=== PATIENT | male | born 1965 | race Caucasian/White ===

== ENCOUNTER 2021-03-11 21:34 | Emergency (ER) | payer SELFPAY ==
[~2021-03-11] VITALS: Ht 170.2 cm; Wt 75.0 kg
[2021-03-11] MEDS ORDERED: KETOROLAC 30 MG/ML VIAL. IVP ONE (23:15)
[2021-03-11 23:19] LABS: BASO # 0.1 x10^3/uL (0.0-0.2); BASO % 1 % (0-3); EOS # 0.1 x10^3/uL (0.0-0.7); EOS % 1 % (0-3); HEMATOCRIT 45.9 % (39.0-53.0); HEMOGLOBIN 15.6 g/dL (13.0-17.5); LYMPH # 1.6 x10^3/uL (1.0-4.8); LYMPH % 16 % (24-48); MEAN CORPUSCULAR HEMOGLOBIN 32 pg (25-35); MEAN CORPUSCULAR HGB CONC 34 g/dL (31-37); MEAN CORPUSCULAR VOLUME 95 fL (79-100); MONO # 0.7 x10^3/uL (0.0-1.1); MONO % 7 % (0-9); NEUT # 7.5 x10^3/uL (1.8-7.7); NEUT % 76 % (31-73); PLATELET COUNT 263 x10^3/uL (140-400); RED BLOOD COUNT 4.82 x10^6/uL (4.30-5.70); RED CELL DISTRIBUTION WIDTH 12.8 % (11.5-14.5); WHITE BLOOD COUNT 9.9 x10^3/uL (4.0-11.0)
[2021-03-11 23:26] LABS: BILIRUBIN,URINE NEGATIVE (NEG); CLARITY,URINE CLEAR; COLOR,URINE YELLOW; NITRITE,URINE NEGATIVE (NEG); PROTEIN,URINE NEGATIVE (NEG-TRACE); UROBILINOGEN,URINE 0.2 mg/dL (0.2 mg/dL)
[2021-03-11] MEDS ORDERED: MULTIVIT INFUSN,ADULT 4,VIT K 10 ML, THIAMINE INJ 100 MG, FOLIC ACID INJ 1 MG in IV NOR... IV ONE (23:30)
[2021-03-11 23:41] LABS: CALCIUM 8.3 mg/dL (8.5-10.1); CREATININE 0.8 mg/dL (0.7-1.3); POTASSIUM 3.4 mmol/L (3.5-5.1)
[2021-03-11 23:42] LABS: BACTERIA,URINE 0 /HPF (0-FEW); RBC,URINE 0 /HPF (0-2); WBC,URINE 0 /HPF (0-4)
[2021-03-11 23:47] LABS: ALBUMIN 3.4 g/dL (3.4-5.0); ALBUMIN/GLOBULIN RATIO 0.9 (1.0-1.7); TOTAL BILIRUBIN 0.7 mg/dL (0.2-1.0); TOTAL PROTEIN 7.3 g/dL (6.4-8.2)
--- NOTE | 2021-03-11 23:52 | RAD ---
Exam: Chest one view INDICATION: Chest pain TECHNIQUE: Frontal view of the chest Comparisons: None FINDINGS: The cardiomediastinal silhouette and pulmonary vessels are within normal limits. Subtle patchy airspace disease at the right lung base. No pleural effusion IMPRESSION: Right basilar airspace disease, may relate to atelectasis or developing infectious process. Electronically signed by: Tami Yu MD (03/11/2021 11:49 PM) [facility]
[2021-03-12] MEDS ORDERED: IOHEXOL 300 MG/ML 100ML VIAL. IV ONE (00:30)
[2021-03-12] MEDS ORDERED: CONTRAST GIVEN. MC PRN (00:45)
[2021-03-12 01:31] VITALS: BP 138/85
--- NOTE | 2021-03-12 01:35 | PHYS DOC ---
Past Medical History Past Surgical History: Other Additional Past Surgical Histo: bilat wrists Smoking Status: Current Every Day Smoker Alcohol Use: Heavy General Adult EDM: Chief Complaint: CHEST PAIN HPI: HPI: Patient is a 55-year-old male presents to the emergency department complaining of right upper quadrant pain for the past 2 days. Reports he woke up with this pain. Patient denies taking any pain medications other than drinking beer. Patient reports he does not drink any alcohol other than beer. Patient reports he has drank every day at least 12-15 beers for the past 16 years. Patient also reports smoking cigarettes and occasionally smoking marijuana, denies other illicit drug use. Patient denies shortness of breath, recent fever or chills, denies nausea, vomiting, diarrhea. Patient is unsure if his pain is on his lower right side chest or upper right side abdomen. Patient denies other physic al complaints or physical concerns. Patient does report a history of hepatitis C Review of Systems: Review of Systems: 14 body systems of review of systems have been reviewed. See HPI for pertinent positives and negative responses, otherwise all other systems are negative, nonpertinent or noncontributory. Constitutional: Negative except as outlined in HPI above. Skin: Negative except as outlined in HPI above. Eyes: Negative except as outlined in HPI above. HENT: Negative except as outlined in HPI above. Respiratory: Negative except as outlined in HPI above. Cardiovascular: Negative except as outlined in HPI above. GI: Negative except as outlined in HPI above. : Negative except as outlined in HPI above. Musculoskeletal: Negative except as outlined in HPI above. Integument: Negative except as outlined in HPI above. Neurologic: Negative except as outlined in HPI above. Endocrine: Negative except as outlined in HPI above. Lymphatic: Negative except as outlined in HPI above. Psychiatric: Negative except as outlined in HPI above. Heart Score: C/O Chest Pain: No Risk Factors: Risk Factors: DM, Current or recent (<one month) smoker, HTN, HLP, family history of CAD, obesity. Risk Scores: Score 0 - 3: 2.5% MACE over next 6 weeks - Discharge Home Score 4 - 6: 20.3% MACE over next 6 weeks - Admit for Clinical Observation Score 7 - 10: 72.7% MACE over next 6 weeks - Early Invasive Strategies Current Medications: Current Medications Medications (Trade) Dose Ordered Sig/Stephanie Start Time Stop Time Status Last Admin Dose Admin Info (CONTRAST GIVEN -- Rx MONITORING) 1 each PRN DAILY PRN 03/12/21 00:45 03/14/21 00:44 Iohexol (Omnipaque 300 Mg/ml) 75 ml 1X ONCE 03/12/21 00:30 03/12/21 00:31 DC Ketorolac Tromethamine (Toradol 30mg Vial) 30 mg 1X ONCE 03/11/21 23:15 03/11/21 23:16 DC 03/11/21 23:25 30 MG Multivitamins 10 ml/Thiamine HCl 100 mg/Folic Acid 1 mg/Sodium Chloride 1,011.2 ml @ 1,000.088 mls/hr 1X ONCE 03/11/21 23:30 03/12/21 00:30 DC 03/11/21 23:24 1,000.088 MLS/HR Allergies: Allergies: Allergies Coded Allergies Type Severity Reaction Last Updated Verified No Known Drug Allergies 03/11/21 No Physical Exam: PE: Constitutional: Well developed, well nourished, no acute distress, non-toxic appearance. 55-year-old in no apparent distress. HENT: Normocephalic, atraumatic. Eyes: Conjunctiva normal, no discharge. Neck: Normal range of motion, no stridor. Cardiovascular: No cyanosis appreciated, distal cap refill less than 2 seconds. Lungs & Thorax: Patient is in no respiratory distress, no audible adventitious lung sounds appreciated. Pain to palpation right lower ribs anterior thorax, no crepitus appreciated, no bruising or swelling or ecchymotic areas of the anterior thorax appreciated. Abdomen: Nontender, no abnormalities noted. No Parmar sign, no pain to palpation all 4 quadrants, normal bowel sounds all 4 quadrants. Skin: Warm, dry, no erythema, no rash. Back: No tenderness, no deformities. Extremities: No tenderness, no cyanosis, no clubbing, ROM intact, no edema. Neurologic: Alert and oriented X 3, normal motor function, normal sensory function, no focal deficits noted. Psychologic: Affect normal, judgement normal, mood normal. Current Patient Data: Labs: Laboratory Tests Test 03/11/21 21:50 03/11/21 23:20 White Blood Count 9.9 x10^3/uL (4.0-11.0) Red Blood Count 4.82 x10^6/uL (4.30-5.70) Hemoglobin 15.6 g/dL (13.0-17.5) Hematocrit 45.9 % (39.0-53.0) Mean Corpuscular Volume 95 fL (79-100) Mean Corpuscular Hemoglobin 32 pg (25-35) Mean Corpuscular Hemoglobin Concent 34 g/dL (31-37) Red Cell Distribution Width 12.8 % (11.5-14.5) Platelet Count 263 x10^3/uL (140-400) Neutrophils (%) (Auto) 76 % (31-73) H Lymphocytes (%) (Auto) 16 % (24-48) L Monocytes (%) (Auto) 7 % (0-9) Eosinophils (%) (Auto) 1 % (0-3) Basophils (%) (Auto) 1 % (0-3) Neutrophils # (Auto) 7.5 x10^3/uL (1.8-7.7) Lymphocytes # (Auto) 1.6 x10^3/uL (1.0-4.8) Monocytes # (Auto) 0.7 x10^3/uL (0.0-1.1) Eosinophils # (Auto) 0.1 x10^3/uL (0.0-0.7) Basophils # (Auto) 0.1 x10^3/uL (0.0-0.2) Sodium Level 127 mmol/L (136-145) L Potassium Level 3.4 mmol/L (3.5-5.1) L Chloride Level 94 mmol/L (98-107) L Carbon Dioxide Level 27 mmol/L (21-32) Anion Gap 6 (6-14) Blood Urea Nitrogen 5 mg/dL (8-26) L Creatinine 0.8 mg/dL (0.7-1.3) Estimated GFR (Cockcroft-Gault) 100.0 BUN/Creatinine Ratio 6 (6-20) Glucose Level 121 mg/dL (70-99) H Calcium Level 8.3 mg/dL (8.5-10.1) L Total Bilirubin 0.7 mg/dL (0.2-1.0) Aspartate Amino Transferase (AST) 42 U/L (15-37) H Alanine Aminotransferase (ALT) 68 U/L (16-63) H Alkaline Phosphatase 93 U/L (46-116) Creatine Kinase 141 U/L (39-308) Creatine Kinase MB (Mass) 3.0 ng/mL (0.0-3.6) Creatine Kinase MB Relative Index 2.1 % (0-4) Troponin I High Sensitivity 6 ng/L (4-75) DT-Uub-G-Type Natriuretic Peptide 77 pg/mL (0-124) Total Protein 7.3 g/dL (6.4-8.2) Albumin 3.4 g/dL (3.4-5.0) Albumin/Globulin Ratio 0.9 (1.0-1.7) L Lipase 108 U/L (73-393) Ethyl Alcohol Level 189 mg/dL (0-10) H Urine Collection Type Void Urine Color Yellow Urine Clarity Clear Urine pH 6.0 (<5.0-8.0) Urine Specific [place] <=1.005 (1.000-1.030) Urine Protein Negative mg/dL (NEG-TRACE) Urine Glucose (UA) Negative mg/dL (NEG) Urine Ketones (Stick) Negative mg/dL (NEG) Urine Blood Negative (NEG) Urine Nitrite Negative (NEG) Urine Bilirubin Negative (NEG) Urine Urobilinogen Dipstick 0.2 mg/dL (0.2 mg/dL) Urine Leukocyte Esterase Negative (NEG) Urine RBC 0 /HPF (0-2) Urine WBC 0 /HPF (0-4) Urine Squamous Epithelial Cells Occ /LPF Urine Bacteria 0 /HPF (0-FEW) Laboratory Tests 03/11/21 21:50 Laboratory Tests 03/11/21 21:50 Vital Signs: Vital Signs Date Time Temp Pulse Resp B/P (MAP) Pulse Ox O2 Delivery O2 Flow Rate FiO2 03/11/21 22:43 102 30 129/74 (92) 95 Room Air 03/11/21 21:48 99.4 99.4 EKG: EKG: EKG performed at 2143 by ED nursing staff shows sinus tachycardia without other ectopy, heart rate 107 bpm, DE interval 0.132, QTc interval 0.432, no acute STEMI, no ACS, no acute ischemia appreciated, EKG interpreted by ED attending physician Dr. Restrepo. Radiology/Procedures: Radiology/Procedures: PROCEDURE: CHEST AP ONLY Exam: Chest one view INDICATION: Chest pain TECHNIQUE: Frontal view of the chest Comparisons: None FINDINGS: The cardiomediastinal silhouette and pulmonary vessels are within normal limits. Subtle patchy airspace disease at the right lung base. No pleural effusion IMPRESSION: Right basilar airspace disease, may relate to atelectasis or developing infectious process. Electronically signed by: Tami Yu MD (03/11/2021 11:49 PM) [facility] Course & Med Decision Making: Course & Med Decision Making Pertinent Labs and Imaging studies reviewed. (See chart for details) 55-year-old male, vital signs reviewed, presents to the emergency department concerning right lower anterior rib pain for the past 2 days. Patient does have history of alcoholism, physical examination concerning for musculoskeletal chest wall pain versus other alcohol related abdominal process. Will order lipase, EKG, chest x-ray, CBC, CMP, NT proBNP, troponin I high-sensitivity study, urinalysis assay, cardiac isoenzymes, ethanol level, ammonia level, will give banana bag and Toradol for pain. Patient CBC within normal limits, patient's sodium 127, upon reevaluation of the patient, the patient states he is now pain-free and feels the pain medication he was given in the ED today helps his pain. Reviewed labs with ED attending physician Dr. Restrepo who feels it is okay for patient to be discharged to home. Discussed with patient discharge planning, offered patient resources to help with with stopping his daily drinking of alcohol, patient reports he has plenty of resources had is not ready to quit drinking. Discussed with patient smoking cessation, strict follow-up with primary care soon, patient does not have primary care physician will provide 1 for patient prior to discharge, patient is amenable to ED discharge planning. Diagnosis chest wall pain. Dragon Disclaimer: Gaudencio Disclaimer: This electronic medical record was generated, in whole or in part, using a voice recognition dictation system. Departure Departure Impression: Primary Impression: Chest wall pain Additional Impression: Alcoholism Disposition: HOME / SELF CARE / HOMELESS Condition: GOOD Referrals: NO PCP (PCP) Patient Instructions: Chest Wall Pain Additional Instructions: You are seen in the emergency department today for pain to your right lower chest. Because of your history of alcoholism, and extensive cardiorespiratory work-up was done today in the emergency department. Your chest x-ray did not show any concerning findings, your lab work was not concerning for infectious process however as we discussed there was some dehydration which is most likely due to your daily drinking of beer. We have discussed cessation of drinking alcohol, you were offered resources but have reported that you have plenty of resources to help you quit drinking when you are ready. I encourage you to follow-up with a primary care physician soon, I have provided you area clinics and primary care physicians for you to choose an establish a primary care soon. Please return the emergency department for worsening symptoms or other concerns. You may use dopj-[id number] Motrin or Naprosyn for ongoing or returning aches and pains. thank you for visiting our Emergency Department. It was a pleasure taking care of you today in the emergency department and we appreciate you trusting us with your care. If any additional problems come up don't hesitate to return to visit us. Please follow up with your primary care provider so they can plan additional care if needed and know about the problem that you had. If symp toms worsen come back to the Emergency Department. Any concerning symptoms that start such as chest pain, shortness of air, weakness or numbness on one side of the body, running high fevers or any other concerning symptoms return to the ER. EMERGENCY DEPARTMENT GENERAL DISCHARGE INSTRUCTIONS Thank you for coming to [facility] Emergency Department (ED) today and trusting us with you care. We trust that you had a positive experience in our Emergency Department. If you wish to speak to the department management, you may call the Director at [phone]. YOUR FOLLOW UP INSTRUCTIONS ARE FOLLOWS: 1. Do you have a private Doctor? If you do not have a private doctor, please ask for a resource list of physicians or clinics that may be able to assist you with follow up care. 2. The Emergency Physicain has interpreted your x-rays. The X-Ray specialist will also review them. If there is a change in the findings, you will be notified in 48 hours when at all possible. 3. A lab test or culture has been done, your results will be reviewed and you will be notified if you need a change in treatment. ADDITIONAL INSTRUCTIONS AND INFORMATION: 1. Your care today has been supervised by a physician who is specially trained in emergency care. Many problems require more than one evaluation for a complete diagnosis and treatment. We recommend that you schedule your follow up appointment as recommended to ensure complete treatment of you illness or injury. If you are unable to obtain follow up care and continue to have a problem, or if your condition worsens, we recommend that you return to the ED. 2. We are not able to safely determine your condition over the phone nor are we able to give sound medical advice over the phone. For these safety reasons, if you call for medical advice we will ask you to come to the ED for further evaluation. 3. If you have any questions regarding these discharge instructions please call the ED at [phone]. SAFETY INFORMATION: In the interest of safety, wellness, and injury prevention; we encourage you to wear your sealbelt, if you smoke; quite smoking, and we encourage family to use a prote ctive helmet for bicycling and other sporting events that present an increased risk for head injury. IF YOUR SYMPTOMS WORSEN OR NEW SYMPTOMS DEVELOP, OR YOU HAVE CONCERNS ABOUT YOUR CONDITION; OR IF YOUR CONDITION WORSENS WHILE YOU ARE WAITING FOR YOUR FOLLOW UP APPOINTMENT; EITHER CONTACT YOUR PRIMARY CARE DOCTOR, THE PHYSICIAN WHOSE NAME AND NUMBER YOU WERE GIVEN, OR RETURN TO THE ED IMMEDIATELY. PARAG WESTBROOK APRN Mar 12, 2021 01:35
--- NOTE | 2021-03-12 06:39 | EKG ---
[facility] [address] [place] [address] Test Date: 2021-03-11 Test Time: 21:43:12 Pat Name: BERE CERNA Department: Room: Gender: M Vamp Presser: : 1965 Requested By: PARAG WESTBROOK Order Number: [id number] Reading MD: Zohaib Fish MD Measurements Intervals [place] Rate: 107 P: 116 PA: 132 QRS: 47 QRSD: 84 T: 175 QT: 320 QTc: 432 Interpretive Statements SINUS TACHYCARDIA NON-SPECIFIC ST/T CHANGES Electronically Signed On 03-13-2021 13:54:33 DISTRIBUTION FIELD TECHNICIAN by Zohaib Fish MD
== END 2021-03-12 02:10 | disposition home or self-care (01) ==
LOC: ER 21:34
DX: R07.89 Other chest pain (principal); R10.11 Right upper quadrant pain; F17.200 Nicotine dependence, unspecified, uncomplicated; F10.20 Alcohol dependence, uncomplicated; Y90.6 Blood alcohol level of 120-199 mg/100 ml
CPT/HCPCS: 36415; 71045; 80053; 81001; 82140; 82553; 83690; 83880; 84484; 85025; 93005; 96365; 96375; 99285; G0480; J1885; J3411; J3490; J7030

== ENCOUNTER 2021-03-13 15:41 | Inpatient (IN) | payer SELFPAY ==
[~2021-03-13] VITALS: Ht 172.7 cm; Wt 75.1 kg
[2021-03-13] MEDS ORDERED: MORPHINE SULFATE 2 MG/ML INJ. IVP ONE (16:15)
[2021-03-13] MEDS ORDERED: ONDANSETRON PF 4 MG/2 ML VIAL. IVP ONE (16:45)
[2021-03-13 16:48] LABS: BASO # 0.1 x10^3/uL (0.0-0.2); BASO % 1 % (0-3); EOS # 0.1 x10^3/uL (0.0-0.7); EOS % 2 % (0-3); HEMATOCRIT 44.8 % (39.0-53.0); HEMOGLOBIN 15.6 g/dL (13.0-17.5); LYMPH % 11 % (24-48); MEAN CORPUSCULAR HEMOGLOBIN 33 pg (25-35); MEAN CORPUSCULAR HGB CONC 35 g/dL (31-37); MEAN CORPUSCULAR VOLUME 96 fL (79-100); MONO # 0.7 x10^3/uL (0.0-1.1); MONO % 7 % (0-9); NEUT # 7.4 x10^3/uL (1.8-7.7); NEUT % 80 % (31-73); PLATELET COUNT 236 x10^3/uL (140-400); RED BLOOD COUNT 4.66 x10^6/uL (4.30-5.70); RED CELL DISTRIBUTION WIDTH 12.7 % (11.5-14.5); WHITE BLOOD COUNT 9.2 x10^3/uL (4.0-11.0)
--- NOTE | 2021-03-13 16:50 | RAD ---
AP chest. HISTORY: Chest pain AP view was taken of the chest. There is persistent density at the right costophrenic angle. A focal pneumonia is possible, mass is possible. Follow-up study recommended, CT would be of benefit if the d ensity is not clear. Heart is normal in size. There is no pleural effusion. There is been little sanders ge compared to the study from one day ago. IMPRESSION: 1. Persistent density at the right costophrenic angle either focal pneumonia or possibly an underlyin g mass, follow-up recommended. Electronically signed by: Richmond Bernal MD (03/13/2021 4:48 PM) [facility]
--- NOTE | 2021-03-13 16:50 | PHYS DOC ---
Past Medical History Past Medical History: Alcoholism, COPD (KYRA VILLEDA APRN) Past Surgical History: Other Additional Past Surgical Histo: bilat wrists (KYRA VILLEDA APRN) Smoking Status: Current Every Day Smoker Alcohol Use: Heavy (KYRA VILLEDA APRN) General Adult EDM: Chief Complaint: CHEST WALL PAIN HPI: HPI: Patient is a 55-year-old male that presents today with chest pain. Patient was here on March 11 and was evaluated for the same pain he is experiencing today he states that on Sunday pain was okay but over the course of the today Sunday the pain has gotten worse. Patient states that he did did have a sixpack of be er today and that has not helped dull the pain. Patient denies trauma or fever or chills. (KYRA VILLEDA APRN) Review of Systems: Review of Systems: Constitutional: Denies fever or chills. [] Eyes: Denies change in visual acuity. [] HENT: Denies nasal congestion or sore throat. [] Respiratory: Denies cough or shortness of breath. [] Cardiovascular: Chest pain right sided GI: Denies abdominal pain, nausea, vomiting, bloody stools or diarrhea. [] : Denies dysuria. [] Musculoskeletal: Denies back pain or joint pain. [] Integument: Denies rash. [] Neurologic: Denies headache, focal weakness or sensory changes. [] Endocrine: Denies polyuria or polydipsia. [] Lymphatic: Denies swollen glands. [] Psychiatric: Denies depression or anxiety. [] (KYRA VILLEDA APRN) Heart Score: C/O Chest Pain: Yes HEART Score for Chest Pain: HEART Score for Chest Pain Response (Comments) Value History Moderately Suspicious 1 ECG Normal 0 Age >45 - < 65 1 Risk Factors 1 or 2 Risk Factors 1 Troponin < Normal Limit 0 Total 3 Risk Factors: Risk Factors: DM, Current or recent (<one month) smoker, HTN, HLP, family history of CAD, obesity. Risk Scores: Score 0 - 3: 2.5% MACE over next 6 weeks - Discharge Home Score 4 - 6: 20.3% MACE over next 6 weeks - Admit for Clinical Observation Score 7 - 10: 72.7% MACE over next 6 weeks - Early Invasive Strategies (KYRA VILLEDA CUSTOMS MANAGER) Current Medications: Current Medications Medications (Trade) Dose Ordered Sig/Stephanie Start Time Stop Time Status Last Admin Dose Admin Morphine Sulfate (Morphine Sulfate) 2 mg 1X ONCE 03/13/21 16:15 03/13/21 16:16 DC 03/13/21 16:40 2 MG Ondansetron HCl (Zofran) 4 mg 1X ONCE 03/13/21 16:45 03/13/21 16:46 03/13/21 16:39 4 MG (KYRA VILLEDA APRN) Allergies: Allergies: Allergies Coded Allergies Type Severity Reaction Last Updated Verified No Known Drug Allergies 03/11/21 No (KYRA VILLEDA APRN) Physical Exam: PE: Constitutional: Well developed, well nourished, moderate distress HENT: Normocephalic, atraumatic, bilateral external ears normal, oropharynx moist, no oral exudates, nose normal. [] Eyes: PERRLA, EOMI, conjunctiva normal, no discharge. [] Neck: Normal range of motion, no tenderness, supple, no stridor. [] Cardiovascular: air sampling and monitoring shows sinus tach, peripheral pulses 2+, no edema in extremities noted Lungs & Thorax: Wheezes noted in the bases on the left lung, patient has diminished breath sounds in the right base Abdomen: Bowel sounds normal, patient is somewhat guarded upon exam does have some right upper quadrant abdominal pain, liver margins are palpable Skin: Warm, dry, no erythema, no rash. [] Back: No tenderness, no CVA tenderness. [] Extremities: No tenderness, no cyanosis, no clubbing, ROM intact, no edema. [] Neurologic: Alert and oriented X 3, normal motor function, normal sensory function, no focal deficits noted. [] Psychologic: Affect normal, judgement normal, mood normal. [] (KYRA VILLEDA APRN) Current Patient Data: Labs: Laboratory Tests Test 03/13/21 16:30 03/13/21 18:30 White Blood Count 9.2 x10^3/uL Red Blood Count 4.66 x10^6/uL Hemoglobin 15.6 g/dL Hematocrit 44.8 % Mean Corpuscular Volume 96 fL Mean Corpuscular Hemoglobin 33 pg Mean Corpuscular Hemoglobin Concent 35 g/dL Red Cell Distribution Width 12.7 % Platelet Count 236 x10^3/uL Neutrophils (%) (Auto) 80 % Lymphocytes (%) (Auto) 11 % Monocytes (%) (Auto) 7 % Eosinophils (%) (Auto) 2 % Basophils (%) (Auto) 1 % Neutrophils # (Auto) 7.4 x10^3/uL Lymphocytes # (Auto) 1.0 x10^3/uL Monocytes # (Auto) 0.7 x10^3/uL Eosinophils # (Auto) 0.1 x10^3/uL Basophils # (Auto) 0.1 x10^3/uL Sodium Level 130 mmol/L Potassium Level 4.5 mmol/L Chloride Level 95 mmol/L Carbon Dioxide Level 25 mmol/L Anion Gap 10 Blood Urea Nitrogen 6 mg/dL Creatinine 0.8 mg/dL Estimated GFR (Cockcroft-Gault) 100.0 BUN/Creatinine Ratio 8 Glucose Level 118 mg/dL Calcium Level 9.3 mg/dL Total Bilirubin 0.9 mg/dL Aspartate Amino Transf (AST/SGOT) 27 U/L Alanine Aminotransferase (ALT/SGPT) 47 U/L Alkaline Phosphatase 97 U/L Troponin I High Sensitivity < 4 ng/L Total Protein 7.2 g/dL Albumin 3.6 g/dL Albumin/Globulin Ratio 1.0 Lipase 61 U/L Ethyl Alcohol Level 42 mg/dL SARS-CoV-2 Antigen (Rapid) Negative Current Medications Medications (Trade) Dose Ordered Sig/Stephanie Route PRN Reason Start Time Stop Time Status Last Admin Dose Admin Morphine Sulfate (Morphine Sulfate) 2 mg 1X ONCE IVP 03/13/21 16:15 03/13/21 16:16 DC 03/13/21 16:40 Ondansetron HCl (Zofran) 4 mg 1X ONCE IVP 03/13/21 16:45 03/13/21 16:46 DC 03/13/21 16:39 Iohexol (Omnipaque 350 Mg/ml) 90 ml 1X ONCE IV 03/13/21 17:15 03/13/21 17:16 DC 03/13/21 17:40 Info (CONTRAST GIVEN -- Rx MONITORING) 1 each PRN DAILY PRN MC SEE COMMENTS 03/13/21 17:15 03/15/21 17:14 Sodium Chloride 1,000 ml @ 999 mls/hr 1X ONCE IV 03/13/21 18:00 03/13/21 19:00 DC 03/13/21 17:53 Morphine Sulfate (Morphine Sulfate) 4 mg 1X ONCE IVP 03/13/21 18:15 03/13/21 18:16 DC 03/13/21 18:29 Vital Signs: Vital Signs Date Time Temp Pulse Resp B/P (MAP) Pulse Ox O2 Delivery O2 Flow Rate FiO2 03/13/21 19:32 104 30 162/84 (110) 93 Room Air 03/13/21 19:02 106 31 164/79 (107) 92 Room Air 03/13/21 18:32 120 33 169/86 (113) 91 Room Air 03/13/21 18:02 115 40 171/80 (110) 92 Room Air 03/13/21 17:32 121 44 190/134 (152) 90 Room Air 03/13/21 16:54 110 36 176/86 (116) 90 Room Air 03/13/21 16:40 96 03/13/21 16:24 110 46 218/103 (141) 95 Room Air 03/13/21 15:45 98.2 109 25 191/103 (132) 96 Room Air 98.2 Vital Signs Date Time Temp Pulse Resp B/P (MAP) Pulse Ox O2 Delivery O2 Flow Rate FiO2 03/13/21 16:40 96 03/13/21 15:45 98.2 109 25 191/103 (132) Room Air 98.2 (KYRA VILLEDA CUSTOMS MANAGER) EKG: EKG: EKG done at [address] Gonzales at 1648 sinus tachycardia with abnormal high lateral leads no STEMI heart rate 107 MN interval is 132 ms QT interval is 328 ms[] (KYRA VILLEDA CUSTOMS MANAGER) Radiology/Procedures: Radiology/Procedures: REASON: chest pain PROCEDURE: CHEST AP ONLY AP chest. HISTORY: Chest pain AP view was taken of the chest. There is persistent density at the right costophrenic angle. A focal pneumonia is possible, mass is possible. Follow-up study recommended, CT would be of benefit if the density is not clear. Heart is normal in size. There is no pleural effusion. There is been little change compar ed to the study from one day ago. IMPRESSION: 1. Persistent density at the right costophrenic angle either focal pneumonia or possibly an underlying mass, follow-up recommended. Electronically signed by: Richmond Bernal MD (03/13/2021 4:48 PM) [facility] [] (KYRA VILLEDA APRN) Course & Med Decision Making: Course & Med Decision Making Pertinent Labs and Imaging studies reviewed. (See chart for details) 1655 patient reassessed continues to have moderate distress in the bed, oxygen saturations are 90 to 91%, heart rate 105-115, blood pressure continues to be systolically in the 170s. Palpation of abdomen continues to have guarded with increased pain right upper quadrant along with back tenderness in the right as well. [] (KYRA VILLEDA APRN) Course & Med Decision Making Patient was admitted with concern for hyponatremia, pulmonary lesion concerning for malignancy vs potential pneumonia. (NICK SHARP MD) Dragon Disclaimer: Dragon Disclaimer: This electronic medical record was generated, in whole or in part, using a voice recognition dictation system. (KYRA VILLEDA APRN) Departure Departure Impression: Primary Impression: Chest wall pain Additional Impression: Right pulmonary lesion Disposition: ADMITTED INPATIENT Admitting Physician: HIMJoaquín (KYRA VILLEDA APRN) Condition: GUARDED Referrals: NO PCP (PCP) KYRA VILLEDA APRN Mar 13, 2021 16:50 NICK SHARP MD Mar 14, 2021 06:18
[2021-03-13 17:00] LABS: CALCIUM 9.3 mg/dL (8.5-10.1); CREATININE 0.8 mg/dL (0.7-1.3); POTASSIUM 4.5 mmol/L (3.5-5.1)
[2021-03-13 17:07] LABS: ALBUMIN 3.6 g/dL (3.4-5.0); TOTAL BILIRUBIN 0.9 mg/dL (0.2-1.0); TOTAL PROTEIN 7.2 g/dL (6.4-8.2)
[2021-03-13] MEDS ORDERED: CONTRAST GIVEN. MC PRN (17:15)
[2021-03-13] MEDS ORDERED: IOHEXOL 350 MG/ML 100 ML VIAL. IV ONE (17:15)
--- NOTE | 2021-03-13 17:26 | EKG ---
[facility] [address] [place] [address] Test Date: 2021-03-13 Test Time: 16:45:14 Pat Name: BERE CERNA Department: Room: Gender: M Music Industry Intern: : 1965 Requested By: KYRA VILLEDA Order Number: [id number] Reading MD: Zohaib Fish MD Measurements Intervals [place] Rate: 107 P: 11 [place]: 132 QRS: 51 QRSD: 86 T: 90 QT: 328 QTc: 443 Interpretive Statements SINUS TACHYCARDIA NON-SPECIFIC ST/T CHANGES BASELINE ARTIFACT Electronically Signed On 03-13-2021 20:18:10 LUMBER TRIMMER by Zohaib Fish MD
--- NOTE | 2021-03-13 17:52 | RAD ---
Exam: CT of chest, abdomen and pelvis with contrast INDICATION: Chest pain, short of air, right upper quadrant pain TECHNIQUE: Sequential axial images through the chest, abdomen and pelvis obtained following the admin istration of 90 mL of Omni 350 IV contrast. Sagittal and coronal reformatted images were reconstructe d from the axial data and reviewed. Exposure: One or more of the following in the visualized dose reduction techniques were utilized for this examination: 1. Automated exposure control 2. Adjustment of the MA and/or KV according to patient size 3. Use of iterative of reconstructive technique Comparisons: None FINDINGS: Visualized portions of the thyroid are unremarkable. Several prominent but not enlarged pretracheal l ymph nodes are noted. Heart size is normal. No pericardial effusion. Thoracic aorta has a normal course and caliber. Pulmon lupe artery is not enlarged. No pulmonary embolus identified within the main, lobar or proximal segmen yolanda pulmonary arteries. Evaluation distally is limited secondary to contrast bolus. Airways are patent. There is an area of masslike consolidation in the right middle lobe measuring eloisa roximately 2.0 x 2.0 cm in transverse dimension. Mild adjacent groundglass opacities noted. No pneumo thorax. Trace right pleural effusion. Liver, spleen, pancreas, gallbladder and adrenals are unremarkable. No perinephric inflammation or hydronephrosis. No renal or ureteral calculi are identified. Bladder is partially distended and not well evaluated. Prostate is not enlarged. Large and small bowel are unremarkable. Appendix is normal. No free intra-abdominal air or fluid. No obstruction. Normal aorta has normal course and caliber. Abdominal vasculature is patent. No enlarged abdominal lymph nodes are identified. No suspicious osseous lesions or acute fractures. IMPRESSION: 1. Masslike consolidation at the right middle lobe measuring 2 cm in transverse dimension. Overall a ppearance favors malignancy. Recommend correlation with tissue sampling and/or PET/CT. 2. Trace right pleural effusion. 3. No pulmonary embolus identified within the main or lobar pulmonary arteries. Limitations as descr ibed above. 4. No acute process identified within the abdomen or pelvis. Electronically signed by: Tami Yu MD (03/13/2021 5:50 PM) [facility]
[2021-03-13] MEDS ORDERED: IV NORMAL SALINE 1000ML BAG 1,000 ML IV ONE (18:00)
[2021-03-13] MEDS ORDERED: MORPHINE SULFATE 4 MG/ML INJ. IVP ONE (18:15)
[2021-03-13] MEDS: NICOTINE 7MG PATCH. TD SCH (19:00)
[2021-03-13] MEDS ORDERED: chlordiazePOXIDE HCL 25 MG CAPSULE PO ONE (19:15)
[2021-03-13] MEDS ORDERED: MULTIVIT INFUSN,ADULT 4,VIT K 10 ML, THIAMINE INJ 100 MG, FOLIC ACID INJ 1 MG in IV NOR... IV ONE (19:15)
[2021-03-13] MEDS ORDERED: KETOROLAC 30 MG/ML VIAL. IVP ONE (19:15)
[2021-03-13] MEDS ORDERED: ACETAMINOPHEN 325 MG TABLET. PO ONE (19:15)
--- NOTE | 2021-03-13 19:29 | PDOC1 ---
History and Physical Date of Admission Date of Admission DATE: 03/13/21 TIME: 19:23 Source Source: Chart review, Patient History of Present Illness History of Present Illness Huan, is a 55-year-old male return to the ER since 2 days ago with ongoing severe chest pain. He could not get comfortable today he states that on Sunday pain was okay, but he arrived to ER in distress, HR 130, RR 40, BP 200, prior BP 2 days ago with 130 range. pain is much worse, right middle of chest, small spot of pain 9/10, and right hip pain, to palpation, . Patient states that he did did have a sixpack of beer today, normally drinks 12, gets tremor is he does not drink in a day. . Patient denies trauma or fever or chills. CT scan done before I was called showed 2cm middle lobe mass Past Medical History Cardiovascular: No pertinent hx Pulmonary: No pertinent hx GI: No pertinent hx Heme/Onc: No pertinent hx Hepatobiliary: No pertinent hx Psych: Anxiety, Addictions Rheumatologic: No pertinent hx Infectious disease: No pertinent hx Past Surgical History Past Surgical History: No pertinent history Family History Family History: No Significant Social History Smoke: 1 pack per day ALCOHOL: heavy (very) Drugs: None Current Medications Current Medications Current Medications Morphine Sulfate (Morphine Sulfate) 2 mg 1X ONCE IVP Last administered on 03/13/21at 16:40; Start 03/13/21 at 16:15; Stop 03/13/21 at 16:16; Status DC Ondansetron HCl (Zofran) 4 mg 1X ONCE IVP Last administered on 03/13/21at 16: 39; Start 03/13/21 at 16:45; Stop 03/13/21 at 16:46; Status DC Iohexol (Omnipaque 350 Mg/ml) 90 ml 1X ONCE IV Last administered on 03/13/21at 17:40; Start 03/13/21 at 17:15; Stop 03/13/21 at 17:16; Status DC Info (CONTRAST GIVEN -- Rx MONITORING) 1 each PRN DAILY PRN MC SEE COMMENTS; Start 03/13/21 at 17:15; Stop 03/15/21 at 17:14 Sodium Chloride 1,000 ml @ 999 mls/hr 1X ONCE IV Last administered on 03/13/21at 17:53; Start 03/13/21 at 18:00; Stop 03/13/21 at 19:00; Status DC Morphine Sulfate (Morphine Sulfate) 4 mg 1X ONCE IVP Last administered on 03/13/21at 18:29; Start 03/13/21 at 18:15; Stop 03/13/21 at 18:16; Status DC Morphine Sulfate (Morphine Sulfate) 4 mg PRN Q2HR PRN IVP PAIN; Start 03/13/21 at 18:45; Stop 03/14/21 at 18:44 Nicotine (Nicoderm Cq 7mg) 1 patch DAILY TD ; Start 03/13/21 at 19:00 Lorazepam (Ativan) 1 mg BID PO ; Start 03/13/21 at 21:00 Nicotine (Nicoderm Cq 21mg) 1 patch DAILY TD ; Start 03/13/21 at 19:15 Multivitamins 10 ml/Thiamine HCl 100 mg/Folic Acid 1 mg/Sodium Chloride 1,011.2 ml @ 100 mls/ hr 1X ONCE IV ; Start 03/13/21 at 19:15; Stop 03/14/21 at 05:21 Folic Acid (Folic Acid) 1 mg DAILY PO ; Start 03/14/21 at 09:00 Thiamine Mononitrate (Vitamin B-1) 100 mg DAILY PO ; Start 03/14/21 at 09:00 Lorazepam (Ativan Inj) 2 mg PRN Q1HR PRN IV For CIWA 8-14; Start 03/13/21 at 19:15 Lorazepam (Ativan Inj) 4 mg PRN Q1HR PRN IV For CIWA 15 or greater; Start 03/13/21 at 19:15 Ketorolac Tromethamine (Toradol 30mg Vial) 30 mg 1X ONCE IVP ; Start 03/13/21 at 19:15; Stop 03/13/21 at 19:16; Status DC Oxycodone/ Acetaminophen (Percocet 5/325) 1 tab PRN Q4HRS PRN PO MODERATE TO SEVERE PAIN; Start 03/13/21 at 19:15 Acetaminophen (Tylenol) 650 mg 1X ONCE PO ; Start 03/13/21 at 19:15; Stop 03/13/21 at 19:16; Status DC Chlordiazepoxide (Librium) 25 mg 1X ONCE PO ; Start 03/13/21 at 19:15; Stop 03/13/21 at 19:16; Status DC Allergies Allergies: Coded Allergies: No Known Drug Allergies (Unverified , 03/11/21) ROS General: YES: Fatigue; No: Chills, Night Sweats, Malaise, Appetite, Other PSYCHOLOGICAL ROS: YES: Anxiety; No: Behavioral Disorder, Concentration difficultie, Decreased libido, Depression, Disorientation, Hallucinations, Hostility, Irritablity, Memory difficulties, Mood Swings, Obsessive thoughts, Physical abuse, Sexual abuse, Sleep disturbances, Suicidal ideation, Other Eyes: No Blurry vision, No Decreased vision, No Double vision, No Dry eyes, No Excessive tearing, No Eye Pain, No Itchy Eyes, No Loss of vision, No Photophobia, No Scotomata, No Uses contacts, No Uses glasses, No Other HEENT: YES: Heacaches; No: Visual Changes, Hearing change, Nasal congestion, Nasal discharge, Oral lesions, Sinus pain, Sore Throat, Epistaxis, Sneezing, Snoring, Tinnitus, Vertigo, Vocal changes, Other Respiratory: No: Cough, Hemoptysis, Orthopnea, Pleuritic Pain, Shortness of breath, SOB with excertion, Sputum Changes, Stridor, Tachypnea, Wheezing, Other Cardiovascular: yes Chest Pain Gastrointestinal: No Nausea, No Vomiting, No Abdominal Pain, No Diarrhea, No Constipation, No Melena, No Hematochezia, No Other Genitourinary: No Dysuria, No Frequency, No Incontinence, No Hematuria, No Retention, No Discharge, No Urgency, No Pain, No Flank Pain, No Other, No , No , No , No , No , No , No Musculoskeletal: Yes Joint Pain (hip); No Gait Disturbance, No Joint Stiffness, No Joint Swelling, No Muscle Pain, No Muscular Weakness, No Pain In:, No Swelling In:, No Other Neurological: No Behavorial Changes, No Bowel/Bladder ControlChng, No Confusion, No Dizziness, No Gait Disturbance, No Headaches, No Impaired Coord/balance, No Memory Loss, No Numbness/Tingling, No Seizures, No Speech Problems, No Tremors, No Visual Changes, No Weakness, No Other Skin: No Dry Skin, No Eczema, No Hair Changes, No Lumps, No Mole Changes, No Mottling, No Nail Changes, No Pruritus, No Rash, No Skin Lesion Changes, No Other, No Acne Physical Exam General: Alert, Oriented X3, Cooperative, moderate distress (pain, resp rate, anxious ) HEENT: Atraumatic, PERRLA Lungs: Clear to auscultation Heart: RRR, other (tachy) Abdomen: Normal bowel sounds, Soft (tender) Extremities: No cyanosis Skin: No rashes, No breakdown Neuro: Normal speech, Sensation intact Psych/Mental Status: Mental status NL Vitals Vitals Vital Signs Date Time Temp Pulse Resp B/P (MAP) Pulse Ox O2 Delivery O2 Flow Rate FiO2 03/13/21 18:02 115 40 171/80 (110) 92 Room Air 03/13/21 15:45 98.2 98.2 Labs Labs Laboratory Tests Test 03/13/21 16:30 03/13/21 18:30 White Blood Count 9.2 x10^3/uL (4.0-11.0) Red Blood Count 4.66 x10^6/uL (4.30-5.70) Hemoglobin 15.6 g/dL (13.0-17.5) Hematocrit 44.8 % (39.0-53.0) Mean Corpuscular Volume 96 fL (79-100) Mean Corpuscular Hemoglobin 33 pg (25-35) Mean Corpuscular Hemoglobin Concent 35 g/dL (31-37) Red Cell Distribution Width 12.7 % (11.5-14.5) Platelet Count 236 x10^3/uL (140-400) Neutrophils (%) (Auto) 80 % (31-73) Lymphocytes (%) (Auto) 11 % (24-48) Monocytes (%) (Auto) 7 % (0-9) Eosinophils (%) (Auto) 2 % (0-3) Basophils (%) (Auto) 1 % (0-3) Neutrophils # (Auto) 7.4 x10^3/uL (1.8-7.7) Lymphocytes # (Auto) 1.0 x10^3/uL (1.0-4.8) Monocytes # (Auto) 0.7 x10^3/uL (0.0-1.1) Eosinophils # (Auto) 0.1 x10^3/uL (0.0-0.7) Basophils # (Auto) 0.1 x10^3/uL (0.0-0.2) Sodium Level 130 mmol/L (136-145) Potassium Level 4.5 mmol/L (3.5-5.1) Chloride Level 95 mmol/L (98-107) Carbon Dioxide Level 25 mmol/L (21-32) Anion Gap 10 (6-14) Blood Urea Nitrogen 6 mg/dL (8-26) Creatinine 0.8 mg/dL (0.7-1.3) Estimated GFR (Cockcroft-Gault) 100.0 BUN/Creatinine Ratio 8 (6-20) Glucose Level 118 mg/dL (70-99) Calcium Level 9.3 mg/dL (8.5-10.1) Total Bilirubin 0.9 mg/dL (0.2-1.0) Aspartate Amino Transf (AST/SGOT) 27 U/L (15-37) Alanine Aminotransferase (ALT/SGPT) 47 U/L (16-63) Alkaline Phosphatase 97 U/L (46-116) Troponin I High Sensitivity < 4 ng/L (4-75) Total Protein 7.2 g/dL (6.4-8.2) Albumin 3.6 g/dL (3.4-5.0) Albumin/Globulin Ratio 1.0 (1.0-1.7) Lipase 61 U/L (73-393) Ethyl Alcohol Level 42 mg/dL (0-10) SARS-CoV-2 Antigen (Rapid) Negative (NEGATIVE) Laboratory Tests Test 03/13/21 16:30 03/13/21 18:30 White Blood Count 9.2 x10^3/uL (4.0-11.0) Red Blood Count 4.66 x10^6/uL (4.30-5.70) Hemoglobin 15.6 g/dL (13.0-17.5) Hematocrit 44.8 % (39.0-53.0) Mean Corpuscular Volume 96 fL (79-100) Mean Corpuscular Hemoglobin 33 pg (25-35) Mean Corpuscular Hemoglobin Concent 35 g/dL (31-37) Red Cell Distribution Width 12.7 % (11.5-14.5) Platelet Count 236 x10^3/uL (140-400) Neutrophils (%) (Auto) 80 % (31-73) Lymphocytes (%) (Auto) 11 % (24-48) Monocytes (%) (Auto) 7 % (0-9) Eosinophils (%) (Auto) 2 % (0-3) Basophils (%) (Auto) 1 % (0-3) Neutrophils # (Auto) 7.4 x10^3/uL (1.8-7.7) Lymphocytes # (Auto) 1.0 x10^3/uL (1.0-4.8) Monocytes # (Auto) 0.7 x10^3/uL (0.0-1.1) Eosinophils # (Auto) 0.1 x10^3/uL (0.0-0.7) Basophils # (Auto) 0.1 x10^3/uL (0.0-0.2) Sodium Level 130 mmol/L (136-145) Potassium Level 4.5 mmol/L (3.5-5.1) Chloride Level 95 mmol/L (98-107) Carbon Dioxide Level 25 mmol/L (21-32) Anion Gap 10 (6-14) Blood Urea Nitrogen 6 mg/dL (8-26) Creatinine 0.8 mg/dL (0.7-1.3) Estimated GFR (Cockcroft-Gault) 100.0 BUN/Creatinine Ratio 8 (6-20) Glucose Level 118 mg/dL (70-99) Calcium Level 9.3 mg/dL (8.5-10.1) Total Bilirubin 0.9 mg/dL (0.2-1.0) Aspartate Amino Transf (AST/SGOT) 27 U/L (15-37) Alanine Aminotransferase (ALT/SGPT) 47 U/L (16-63) Alkaline Phosphatase 97 U/L (46-116) Troponin I High Sensitivity < 4 ng/L (4-75) Total Protein 7.2 g/dL (6.4-8.2) Albumin 3.6 g/dL (3.4-5.0) Albumin/Globulin Ratio 1.0 (1.0-1.7) Lipase 61 U/L (73-393) Ethyl Alcohol Level 42 mg/dL (0-10) SARS-CoV-2 Antigen (Rapid) Negative (NEGATIVE) VTE Prophylaxis Ordered VTE Prophylaxis Devices: No VTE Pharmacological Prophylaxi: No Assessment/Plan Assessment/Plan SIRS acute chest pain middle lobe mass, 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
[2021-03-13 20:00] VITALS: BP 156/85
[2021-03-13] MEDS: NICOTINE 21MG PATCH. TD SCH (22:13)
[2021-03-13 23:00] VITALS: BP 128/82
[2021-03-14] VITALS (7 sets, daily range): BP systolic 146–178; BP diastolic 88–97
[2021-03-14] MEDS: oxyCODONE/APAP 5/325 1 TAB TABLET PO PRN ×3 (03:19→19:12)
[2021-03-14] MEDS: FOLIC ACID 1 MG TABLET. PO SCH (07:56)
[2021-03-14] MEDS: NICOTINE 7MG PATCH. TD SCH (07:56)
[2021-03-14] MEDS: THIAMINE 100 MG TABLET. PO SCH (07:56)
[2021-03-14] MEDS: NICOTINE 21MG PATCH. TD SCH (08:01)
--- NOTE | 2021-03-14 10:09 | NUR ---
SW following. Discussed with RN, pt from home, room air, regular diet, rapid COVID-19 negative. 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 Med Assist following for self pay status. SW will continue to follow.
[2021-03-14] MEDS: MORPHINE SULFATE 4 MG/ML INJ. IVP PRN ×2 (11:52→13:26)
--- NOTE | 2021-03-14 13:21 | PDOC ---
PULMONARY PROGRESS NOTES DATE: 03/14/21 TIME: 13:20 Vitals Vital Signs Date Time Temp Pulse Resp B/P (MAP) Pulse Ox O2 Delivery O2 Flow Rate FiO2 03/14/21 11:52 Room Air 03/14/21 11:00 98.2 110 20 166/88 (114) 91 98.2 Labs Laboratory Tests Test 03/13/21 16:30 03/13/21 18:30 White Blood Count 9.2 x10^3/uL (4.0-11.0) Red Blood Count 4.66 x10^6/uL (4.30-5.70) Hemoglobin 15.6 g/dL (13.0-17.5) Hematocrit 44.8 % (39.0-53.0) Mean Corpuscular Volume 96 fL (79-100) Mean Corpuscular Hemoglobin 33 pg (25-35) Mean Corpuscular Hemoglobin Concent 35 g/dL (31-37) Red Cell Distribution Width 12.7 % (11.5-14.5) Platelet Count 236 x10^3/uL (140-400) Neutrophils (%) (Auto) 80 % (31-73) Lymphocytes (%) (Auto) 11 % (24-48) Monocytes (%) (Auto) 7 % (0-9) Eosinophils (%) (Auto) 2 % (0-3) Basophils (%) (Auto) 1 % (0-3) Neutrophils # (Auto) 7.4 x10^3/uL (1.8-7.7) Lymphocytes # (Auto) 1.0 x10^3/uL (1.0-4.8) Monocytes # (Auto) 0.7 x10^3/uL (0.0-1.1) Eosinophils # (Auto) 0.1 x10^3/uL (0.0-0.7) Basophils # (Auto) 0.1 x10^3/uL (0.0-0.2) Sodium Level 130 mmol/L (136-145) Potassium Level 4.5 mmol/L (3.5-5.1) Chloride Level 95 mmol/L (98-107) Carbon Dioxide Level 25 mmol/L (21-32) Anion Gap 10 (6-14) Blood Urea Nitrogen 6 mg/dL (8-26) Creatinine 0.8 mg/dL (0.7-1.3) Estimated GFR (Cockcroft-Gault) 100.0 BUN/Creatinine Ratio 8 (6-20) Glucose Level 118 mg/dL (70-99) Calcium Level 9.3 mg/dL (8.5-10.1) Total Bilirubin 0.9 mg/dL (0.2-1.0) Aspartate Amino Transf (AST/SGOT) 27 U/L (15-37) Alanine Aminotransferase (ALT/SGPT) 47 U/L (16-63) Alkaline Phosphatase 97 U/L (46-116) Troponin I High Sensitivity < 4 ng/L (4-75) Total Protein 7.2 g/dL (6.4-8.2) Albumin 3.6 g/dL (3.4-5.0) Albumin/Globulin Ratio 1.0 (1.0-1.7) Lipase 61 U/L (73-393) Ethyl Alcohol Level 42 mg/dL (0-10) SARS-CoV-2 RNA (ELISEO) Negative (Negative) SARS-CoV-2 Antigen (Rapid) Negative (NEGATIVE) Laboratory Tests Test 03/13/21 16:30 03/13/21 18:30 White Blood Count 9.2 x10^3/uL (4.0-11.0) Red Blood Count 4.66 x10^6/uL (4.30-5.70) Hemoglobin 15.6 g/dL (13.0-17.5) Hematocrit 44.8 % (39.0-53.0) Mean Corpuscular Volume 96 fL (79-100) Mean Corpuscular Hemoglobin 33 pg (25-35) Mean Corpuscular Hemoglobin Concent 35 g/dL (31-37) Red Cell Distribution Width 12.7 % (11.5-14.5) Platelet Count 236 x10^3/uL (140-400) Neutrophils (%) (Auto) 80 % (31-73) Lymphocytes (%) (Auto) 11 % (24-48) Monocytes (%) (Auto) 7 % (0-9) Eosinophils (%) (Auto) 2 % (0-3) Basophils (%) (Auto) 1 % (0-3) Neutrophils # (Auto) 7.4 x10^3/uL (1.8-7.7) Lymphocytes # (Auto) 1.0 x10^3/uL (1.0-4.8) Monocytes # (Auto) 0.7 x10^3/uL (0.0-1.1) Eosinophils # (Auto) 0.1 x10^3/uL (0.0-0.7) Basophils # (Auto) 0.1 x10^3/uL (0.0-0.2) Sodium Level 130 mmol/L (136-145) Potassium Level 4.5 mmol/L (3.5-5.1) Chloride Level 95 mmol/L (98-107) Carbon Dioxide Level 25 mmol/L (21-32) Anion Gap 10 (6-14) Blood Urea Nitrogen 6 mg/dL (8-26) Creatinine 0.8 mg/dL (0.7-1.3) Estimated GFR (Cockcroft-Gault) 100.0 BUN/Creatinine Ratio 8 (6-20) Glucose Level 118 mg/dL (70-99) Calcium Level 9.3 mg/dL (8.5-10.1) Total Bilirubin 0.9 mg/dL (0.2-1.0) Aspartate Amino Transf (AST/SGOT) 27 U/L (15-37) Alanine Aminotransferase (ALT/SGPT) 47 U/L (16-63) Alkaline Phosphatase 97 U/L (46-116) Troponin I High Sensitivity < 4 ng/L (4-75) Total Protein 7.2 g/dL (6.4-8.2) Albumin 3.6 g/dL (3.4-5.0) Albumin/Globulin Ratio 1.0 (1.0-1.7) Lipase 61 U/L (73-393) Ethyl Alcohol Level 42 mg/dL (0-10) SARS-CoV-2 RNA (ELISEO) Negative (Negative) SARS-CoV-2 Antigen (Rapid) Negative (NEGATIVE) Impression . Full consult dictated Treat for pneumonia Repeat CT chest in 3 months LOIDA SAHU MD Mar 14, 2021 13:21
[2021-03-14] MEDS: cefTRIAXone IV Push 1 GM VIAL. IVP SCH (14:00)
[2021-03-14] MEDS ORDERED: DOXYCYCLINE HYCLATE 100 MG TABLET PO ONE (14:00)
--- NOTE | 2021-03-14 14:50 | PDOC ---
[employer] PROGRESS NOTE Date of Service DOS: DATE: 03/14/21 TIME: 14:45 Chief Complaint Chief Complaint SIRS Right lower lobe pneumonia, possible gram-negative organisms Hypertensive urgency Right middle lobe mass, probable malignancy on Radiology read of CT Alcohol withdrawal tobacco use disorder, patch EtOH dependence disorder, Continue CIWA protocol Continue empiric IV antibiotics Appreciate pulmonology recommendationscontinue with current management Oncology consult for lung mass management History of Present Illness History of Present Illness 55-year-old male return to the ER since 2 days ago with ongoing severe chest pain. He could not get comfortable today he states that on Sunday pain was okay, but he arrived to ER in distress, HR 130, RR 40, BP 200, prior BP 2 days ago with 130 range. pain is much worse, right middle of chest, small spot of pain /10, and right hip pain, to palpation, . Patient states that he did did have a sixpack of beer today, normally drinks 12, gets tremor is he does not drink in a day. . Patient denies trauma or fever or chills. CT scan done before I was called showed 2cm middle lobe mass 03/14/2021 No acute events overnight. Patient seen and examined bedside. Resting comfortably. Low CIWA scores. No concerns from nursing at this time patient's chart, labs, images were reviewed and discussed with RN Vitals/I&O Vitals/I&O: Vital Signs Date Time Temp Pulse Resp B/P (MAP) Pulse Ox O2 Delivery O2 Flow Rate FiO2 03/14/21 14:31 Room Air 03/14/21 11:00 98.2 110 20 166/88 (114) 91 98.2 Physical Exam General: Alert, Oriented X3, Cooperative, moderate distress (pain, resp rate, anxious ) Abdomen: Normal bowel sounds, Soft (tender) Extremities: No cyanosis Skin: No rashes, No breakdown Labs Labs: Laboratory Tests Test 03/13/21 16:30 03/13/21 18:30 White Blood Count 9.2 x10^3/uL (4.0-11.0) Red Blood Count 4.66 x10^6/uL (4.30-5.70) Hemoglobin 15.6 g/dL (13.0-17.5) Hematocrit 44.8 % (39.0-53.0) Mean Corpuscular Volume 96 fL (79-100) Mean Corpuscular Hemoglobin 33 pg (25-35) Mean Corpuscular Hemoglobin Concent 35 g/dL (31-37) Red Cell Distribution Width 12.7 % (11.5-14.5) Platelet Count 236 x10^3/uL (140-400) Neutrophils (%) (Auto) 80 % (31-73) Lymphocytes (%) (Auto) 11 % (24-48) Monocytes (%) (Auto) 7 % (0-9) Eosinophils (%) (Auto) 2 % (0-3) Basophils (%) (Auto) 1 % (0-3) Neutrophils # (Auto) 7.4 x10^3/uL (1.8-7.7) Lymphocytes # (Auto) 1.0 x10^3/uL (1.0-4.8) Monocytes # (Auto) 0.7 x10^3/uL (0.0-1.1) Eosinophils # (Auto) 0.1 x10^3/uL (0.0-0.7) Basophils # (Auto) 0.1 x10^3/uL (0.0-0.2) Sodium Level 130 mmol/L (136-145) Potassium Level 4.5 mmol/L (3.5-5.1) Chloride Level 95 mmol/L (98-107) Carbon Dioxide Level 25 mmol/L (21-32) Anion Gap 10 (6-14) Blood Urea Nitrogen 6 mg/dL (8-26) Creatinine 0.8 mg/dL (0.7-1.3) Estimated GFR (Cockcroft-Gault) 100.0 BUN/Creatinine Ratio 8 (6-20) Glucose Level 118 mg/dL (70-99) Calcium Level 9.3 mg/dL (8.5-10.1) Total Bilirubin 0.9 mg/dL (0.2-1.0) Aspartate Amino Transf (AST/SGOT) 27 U/L (15-37) Alanine Aminotransferase (ALT/SGPT) 47 U/L (16-63) Alkaline Phosphatase 97 U/L (46-116) Troponin I High Sensitivity < 4 ng/L (4-75) Total Protein 7.2 g/dL (6.4-8.2) Albumin 3.6 g/dL (3.4-5.0) Albumin/Globulin Ratio 1.0 (1.0-1.7) Lipase 61 U/L (73-393) Ethyl Alcohol Level 42 mg/dL (0-10) SARS-CoV-2 RNA (ELISEO) Negative (Negative) SARS-CoV-2 Antigen (Rapid) Negative (NEGATIVE) Assessment and Plan Assessmemt and Plan Problems Medical Problems: (1) Chest wall pain Status: Acute (2) Right pulmonary lesion Status: Acute Comment Review of Relevant I have reviewed the following items ivett (where applicable) has been applied. Medications: Current Medications Medications (Trade) Dose Ordered Sig/Stephanie Route PRN Reason Start Time Stop Time Status Last Admin Dose Admin Morphine Sulfate (Morphine Sulfate) 2 mg 1X ONCE IVP 03/13/21 16:15 03/13/21 16:16 DC 03/13/21 16:40 Ondansetron HCl (Zofran) 4 mg 1X ONCE IVP 03/13/21 16:45 03/13/21 16:46 DC 03/13/21 16:39 Iohexol (Omnipaque 350 Mg/ml) 90 ml 1X ONCE IV 03/13/21 17:15 03/13/21 17:16 DC 03/13/21 17:40 Sodium Chloride 1,000 ml @ 999 mls/hr 1X ONCE IV 03/13/21 18:00 03/13/21 19:00 DC 03/13/21 17:53 Morphine Sulfate (Morphine Sulfate) 4 mg 1X ONCE IVP 03/13/21 18:15 03/13/21 18:16 DC 03/13/21 18:29 Morphine Sulfate (Morphine Sulfate) 4 mg PRN Q2HR PRN IVP PAIN 03/13/21 18:45 03/14/21 18:44 03/14/21 13:26 Nicotine (Nicoderm Cq 7mg) 1 patch DAILY TD 03/13/21 19:00 03/14/21 07:56 Lorazepam (Ativan) 1 mg BID PO 03/13/21 21:00 03/14/21 07:56 Nicotine (Nicoderm Cq 21mg) 1 patch DAILY TD 03/13/21 19:15 03/14/21 08:01 Multivitamins 10 ml/Thiamine HCl 100 mg/Folic Acid 1 mg/Sodium Chloride 1,011.2 ml @ 100 mls/ hr 1X ONCE IV 03/13/21 19:15 03/14/21 05:21 DC 03/13/21 23:40 Folic Acid (Folic Acid) 1 mg DAILY PO 03/14/21 09:00 03/14/21 07:56 Thiamine Mononitrate (Vitamin B-1) 100 mg DAILY PO 03/14/21 09:00 03/14/21 07:56 Lorazepam (Ativan Inj) 2 mg PRN Q1HR PRN IV For CIWA 8-03/13/21 19:15 03/13/21 22:14 Ketorolac Tromethamine (Toradol 30mg Vial) 30 mg 1X ONCE IVP 03/13/21 19:15 03/13/21 19:16 DC 03/13/21 19:15 Oxycodone/ Acetaminophen (Percocet 5/325) 1 tab PRN Q4HRS PRN PO MODERATE TO SEVERE PAIN 03/13/21 19:15 03/14/21 08:00 Acetaminophen (Tylenol) 650 mg 1X ONCE PO 03/13/21 19:15 03/13/21 19:16 DC 03/13/21 22:13 Chlordiazepoxide (Librium) 25 mg 1X ONCE PO 03/13/21 19:15 03/13/21 19:16 DC 03/13/21 22:31 Justifications for Admission Other Justification CHERYL SNELL MD Mar 14, 2021 14:50
[2021-03-14] MEDS: DOXYCYCLINE HYCLATE 100 MG TABLET PO SCH (19:12)
--- NOTE | 2021-03-14 22:07 | CONS ---
DATE OF CONSULTATION: 03/14/2021 ATTENDING PHYSICIAN: Dr. Marj Núñez. REASON FOR CONSULTATION: The patient is seen in pulmonary consultation at the request of Dr. Núñez for increasing shortness of breath and chest discomfort. HISTORY OF PRESENT ILLNESS: The patient is a 55-year-old who returns to the Emergency Room 2 days ago ____ for increasing shortness of breath, chest discomfort. He had a blood pressure, which was elevated. Heart rate is elevated. He underwent a chest x-ray revealed persistent density in the right costophrenic angle, unchanged from the study previously. Subsequently, the patient underwent CT chest, abdomen and pelvis. CT chest revealed a mass-like consolidation in the right middle lobe approximately 2 cm. There was a tiny trace pleural effusion. There is no acute pulmonary emboli. There was adjacent ground glass opacities. There is no pneumothorax. The patient does smoke. He is a heavy alcohol user also. PAST MEDICAL HISTORY AND PAST SURGICAL HISTORY: Unremarkable. VACCINATION HISTORY: He is not vaccinated against COVID-19. REVIEW OF SYSTEMS: As indicated above, otherwise other systems were reviewed and negative. CURRENT MEDICATIONS: List was reviewed. He is currently receiving pain medication, IV Toradol. PHYSICAL EXAMINATION: VITAL SIGNS: Stable. O2 saturation was greater than 92%, currently on room air. HEENT: Eyes: The sclerae were nonicteric. NECK: Jugular venous distention was not elevated. No lymphadenopathy. CHEST: Full expansion. LUNGS: Adequate flow with no wheezes. CARDIOVASCULAR: Regular rate and rhythm with S1, S2, no S3. ABDOMEN: Soft. EXTREMITIES: No clubbing, cyanosis or edema. NEUROLOGIC: The patient was awake, alert, following commands. A detailed neuro exam was not performed. LABORATORY DATA: Serology for SARS-CoV-2 was negative. Ethyl alcohol was elevated. Electrolytes were noted. White count was normal. IMPRESSION: 1. Abnormal CT chest revealing an opacity in the right middle lobe, suspect pneumonia with pleurisy. 2. Tobacco dependent. 3. Alcoholism. 4. Pleurisy. DISCUSSION: Suspect opacity is a pneumonia. With that being said, the patient requires a repeat CT chest in 2 months, to make certain that the opacity has cleared, if it is not resolved, he will need a fine needle aspiration. I stressed the importance of followup in 2 months. I gave him my business card. For now, I recommend addition of antibiotics. Continue treating the pain. Monitor for alcohol withdrawal. JOSE/STELLA/GINI DR: JOSE/anali TID: [id number]
[2021-03-14] MEDS ORDERED: KETOROLAC 15 MG/ML VIAL. IVP ONE (23:30)
[2021-03-14] MEDS ORDERED: KETOROLAC 15 MG/ML VIAL. IM ONE (23:30)
[2021-03-15] VITALS (7 sets, daily range): BP systolic 141–171; BP diastolic 86–106
[2021-03-15] MEDS: oxyCODONE/APAP 5/325 1 TAB TABLET PO PRN ×5 (03:59→22:00)
--- NOTE | 2021-03-15 08:29 | PDOC ---
PULMONARY PROGRESS NOTES DATE: 03/15/21 TIME: 08:29 Vitals Vital Signs Date Time Temp Pulse Resp B/P (MAP) Pulse Ox O2 Delivery O2 Flow Rate FiO2 03/15/21 04:29 93 Room Air 03/15/21 04:10 100.3 159/100 (119) 100.3 03/15/21 03:00 103 03/14/21 22:51 20 Labs Laboratory Tests Test 03/13/21 16:30 03/13/21 18:30 White Blood Count 9.2 x10^3/uL (4.0-11.0) Red Blood Count 4.66 x10^6/uL (4.30-5.70) Hemoglobin 15.6 g/dL (13.0-17.5) Hematocrit 44.8 % (39.0-53.0) Mean Corpuscular Volume 96 fL (79-100) Mean Corpuscular Hemoglobin 33 pg (25-35) Mean Corpuscular Hemoglobin Concent 35 g/dL (31-37) Red Cell Distribution Width 12.7 % (11.5-14.5) Platelet Count 236 x10^3/uL (140-400) Neutrophils (%) (Auto) 80 % (31-73) Lymphocytes (%) (Auto) 11 % (24-48) Monocytes (%) (Auto) 7 % (0-9) Eosinophils (%) (Auto) 2 % (0-3) Basophils (%) (Auto) 1 % (0-3) Neutrophils # (Auto) 7.4 x10^3/uL (1.8-7.7) Lymphocytes # (Auto) 1.0 x10^3/uL (1.0-4.8) Monocytes # (Auto) 0.7 x10^3/uL (0.0-1.1) Eosinophils # (Auto) 0.1 x10^3/uL (0.0-0.7) Basophils # (Auto) 0.1 x10^3/uL (0.0-0.2) Sodium Level 130 mmol/L (136-145) Potassium Level 4.5 mmol/L (3.5-5.1) Chloride Level 95 mmol/L (98-107) Carbon Dioxide Level 25 mmol/L (21-32) Anion Gap 10 (6-14) Blood Urea Nitrogen 6 mg/dL (8-26) Creatinine 0.8 mg/dL (0.7-1.3) Estimated GFR (Cockcroft-Gault) 100.0 BUN/Creatinine Ratio 8 (6-20) Glucose Level 118 mg/dL (70-99) Calcium Level 9.3 mg/dL (8.5-10.1) Total Bilirubin 0.9 mg/dL (0.2-1.0) Aspartate Amino Transf (AST/SGOT) 27 U/L (15-37) Alanine Aminotransferase (ALT/SGPT) 47 U/L (16-63) Alkaline Phosphatase 97 U/L (46-116) Troponin I High Sensitivity < 4 ng/L (4-75) Total Protein 7.2 g/dL (6.4-8.2) Albumin 3.6 g/dL (3.4-5.0) Albumin/Globulin Ratio 1.0 (1.0-1.7) Lipase 61 U/L (73-393) Ethyl Alcohol Level 42 mg/dL (0-10) SARS-CoV-2 RNA (ELISEO) Negative (Negative) SARS-CoV-2 Antigen (Rapid) Negative (NEGATIVE) Impression . IMPRESSION: 1. Abnormal CT chest revealing an opacity in the right middle lobe, suspect pneumonia with pleurisy. 2. Tobacco dependent. 3. Alcoholism. 4. Pleurisy. Plan . DISCUSSION: Suspect opacity is a pneumonia. With that being said, the patient requires a repeat CT chest in 2 months, to make certain that the opacity has cleared, if it is not resolved, he will need a fine needle aspiration. I stressed the importance of followup in 2 months. I gave him my business card. For now, I recommend addition of antibiotics. Continue treating the pain. Monitor for alcohol withdrawal. LOIDA SAHU MD Mar 15, 2021 08:29
[2021-03-15] MEDS: FOLIC ACID 1 MG TABLET. PO SCH (08:47)
[2021-03-15] MEDS: THIAMINE 100 MG TABLET. PO SCH (08:47)
[2021-03-15] MEDS: DOXYCYCLINE HYCLATE 100 MG TABLET PO SCH ×2 (08:47→19:28)
[2021-03-15] MEDS: NICOTINE 7MG PATCH. TD SCH (08:58)
[2021-03-15] MEDS: NICOTINE 21MG PATCH. TD SCH (08:58)
[2021-03-15 09:55] LABS: BASO # 0.1 x10^3/uL (0.0-0.2); BASO % 1 % (0-3); EOS # 0.1 x10^3/uL (0.0-0.7); EOS % 1 % (0-3); HEMATOCRIT 42.2 % (39.0-53.0); HEMOGLOBIN 14.4 g/dL (13.0-17.5); LYMPH # 0.6 x10^3/uL (1.0-4.8); LYMPH % 4 % (24-48); MEAN CORPUSCULAR HEMOGLOBIN 33 pg (25-35); MEAN CORPUSCULAR HGB CONC 34 g/dL (31-37); MEAN CORPUSCULAR VOLUME 96 fL (79-100); MONO # 1.3 x10^3/uL (0.0-1.1); MONO % 8 % (0-9); NEUT # 13.7 x10^3/uL (1.8-7.7); NEUT % 87 % (31-73); PLATELET COUNT 233 x10^3/uL (140-400); RED BLOOD COUNT 4.38 x10^6/uL (4.30-5.70); RED CELL DISTRIBUTION WIDTH 12.7 % (11.5-14.5); WHITE BLOOD COUNT 15.8 x10^3/uL (4.0-11.0)
--- NOTE | 2021-03-15 10:20 | NUR ---
BEATRICE following. Discussed with RN, pt from home, room air, regular diet. DEIDRE consulted for ETOH use/abuse. Dr. Merrill stated possible discharge home today. Med Assist following for self pay status. BEATRICE will continue to follow. Addendum: 03/15/21 at 1219 by NII PHILIP SW Brian (DEIDRE) met with pt, completed a safety plan and [facility]. Pt cleared by DEIDRE team.
[2021-03-15 10:37] LABS: CREATININE 0.8 mg/dL (0.7-1.3); POTASSIUM 4.4 mmol/L (3.5-5.1)
[2021-03-15 11:23] LABS: % BANDS 31 % (0-9); % LYMPHS 3 % (24-48); % METAS 2 % (0-0); % MONOS 3 % (0-10); % SEGS 61 % (35-66)
[2021-03-15 11:24] LABS: PLT ESTIMATE ADEQUATE (ADEQUATE)
[2021-03-15] MEDS: cefTRIAXone IV Push 1 GM VIAL. IVP SCH (14:29)
[2021-03-15] MEDS ORDERED: ALBUTEROL SULFATE 2.5 MG/3 ML NEBU. NEB PRN (15:15)
--- NOTE | 2021-03-15 15:21 | PDOC ---
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 He could not get comfortable today he states that on Sunday pain was okay, but he arrived to ER in distress, HR 130, RR 40, BP 200, prior BP 2 days ago with 130 range. pain is much worse, right middle of chest, small spot of pain 9/10, and right hip pain, to palpation, . Patient states that he did did have a sixpack of beer today, normally drinks 12, gets tremor is he does not drink in a day. . Patient denies trauma or fever or chills. CT scan done before I was called showed 2cm middle lobe mass 03/14/2021 No acute events overnight. Patient seen and examined bedside. Resting comfortably. Low CIWA scores. No concerns from nursing at this time patient's chart, labs, images were reviewed and discussed with RN 03/15/2021 No acute events overnight. T-max of 100.3 this morning. Patient also had a desaturation episode down to 89% requiring 2 L of O2. No acute dyspneic episodes. We will continue with IV antibiotics. Evaluated by pulmonology and recommended for patient to have repeat CT scan in 2 months. Will anticipate discharge in the next 24-48 hours after one more day IV antibiotics no fevers for the next 24 hours. Vitals/I&O Vitals/I&O: Vital Signs Date Time Temp Pulse Resp B/P (MAP) Pulse Ox O2 Delivery O2 Flow Rate FiO2 03/15/21 14:39 Room Air 03/15/21 11:00 97.6 124 171/105 (127) 90 97.6 03/14/21 22:51 20 Physical Exam General: Alert, Oriented X3, Cooperative, moderate distress (pain, resp rate, anxious ) Abdomen: Normal bowel sounds, Soft (tender) Extremities: No cyanosis Skin: No rashes, No breakdown Labs Labs: Laboratory Tests Test 03/15/21 09:15 White Blood Count 15.8 x10^3/uL (4.0-11.0) Red Blood Count 4.38 x10^6/uL (4.30-5.70) Hemoglobin 14.4 g/dL (13.0-17.5) Hematocrit 42.2 % (39.0-53.0) Mean Corpuscular Volume 96 fL (79-100) Mean Corpuscular Hemoglobin 33 pg (25-35) Mean Corpuscular Hemoglobin Concent 34 g/dL (31-37) Red Cell Distribution Width 12.7 % (11.5-14.5) Platelet Count 233 x10^3/uL (140-400) Neutrophils (%) (Auto) 87 % (31-73) Lymphocytes (%) (Auto) 4 % (24-48) Monocytes (%) (Auto) 8 % (0-9) Eosinophils (%) (Auto) 1 % (0-3) Basophils (%) (Auto) 1 % (0-3) Neutrophils # (Auto) 13.7 x10^3/uL (1.8-7.7) Lymphocytes # (Auto) 0.6 x10^3/uL (1.0-4.8) Monocytes # (Auto) 1.3 x10^3/uL (0.0-1.1) Eosinophils # (Auto) 0.1 x10^3/uL (0.0-0.7) Basophils # (Auto) 0.1 x10^3/uL (0.0-0.2) Segmented Neutrophils % 61 % (35-66) Band Neutrophils % 31 % (0-9) Lymphocytes % 3 % (24-48) Monocytes % 3 % (0-10) Metamyelocytes % 2 % (0-0) Dohle Bodies Present Platelet Estimate Adequate (ADEQUATE) Sodium Level 130 mmol/L (136-145) Potassium Level 4.4 mmol/L (3.5-5.1) Chloride Level 95 mmol/L (98-107) Carbon Dioxide Level 23 mmol/L (21-32) Anion Gap 12 (6-14) Blood Urea Nitrogen 8 mg/dL (8-26) Creatinine 0.8 mg/dL (0.7-1.3) Estimated GFR (Cockcroft-Gault) 100.0 Glucose Level 113 mg/dL (70-99) Calcium Level 9.0 mg/dL (8.5-10.1) Magnesium Level 2.0 mg/dL (1.8-2.4) Procalcitonin 2.85 ng/mL (0.00-0.10) Assessment and Plan Assessmemt and Plan Problems Medical Problems: (1) Chest wall pain Status: Acute (2) Right pulmonary lesion Status: Acute Comment Review of Relevant I have reviewed the following items ivett (where applicable) has been applied. Medications: Current Medications Medications (Trade) Dose Ordered Sig/Stephanie Route PRN Reason Start Time Stop Time Status Last Admin Dose Admin Doxycycline Hyclate (Vibra-Tab) 100 mg BID PO 03/14/21 21:00 03/15/21 08:47 Ketorolac Tromethamine (Toradol 15mg Vial) 15 mg 1X ONCE IVP 03/14/21 23:30 03/14/21 23:31 DC 03/14/21 23:36 Justifications for Admission Other Justification CHERYL SNELL MD Mar 15, 2021 15:20
[2021-03-15] MEDS: LACTOBACILLUS RHAMNOSUS GG 1 CAPSULE. PO SCH (19:28)
--- NOTE | 2021-03-15 21:41 | NUR ---
sepsis screen positive ,protocol initiated.
[2021-03-16 02:54] VITALS: BP 129/80
[2021-03-16 07:00] VITALS: BP 155/106
[2021-03-16] MEDS: NICOTINE 21MG PATCH. TD SCH (08:15)
[2021-03-16] MEDS: DOXYCYCLINE HYCLATE 100 MG TABLET PO SCH (08:15)
[2021-03-16] MEDS: LACTOBACILLUS RHAMNOSUS GG 1 CAPSULE. PO SCH ×2 (08:15→20:44)
[2021-03-16] MEDS: oxyCODONE/APAP 5/325 1 TAB TABLET PO PRN ×3 (08:16→20:44)
[2021-03-16] MEDS: THIAMINE 100 MG TABLET. PO SCH (08:16)
[2021-03-16] MEDS: FOLIC ACID 1 MG TABLET. PO SCH (08:16)
[2021-03-16] MEDS ORDERED: PIP/TAZO PER PHARMACY MC PRN (08:30)
--- NOTE | 2021-03-16 09:16 | PDOC ---
PULMONARY PROGRESS NOTES DATE: 03/16/21 TIME: 09:16 Vitals Vital Signs Date Time Temp Pulse Resp B/P (MAP) Pulse Ox O2 Delivery O2 Flow Rate FiO2 03/16/21 08:50 98 Nasal Cannula 2.0 03/16/21 07:00 98.5 115 16 155/106 (122) 98.5 Labs Laboratory Tests Test 03/15/21 09:15 03/15/21 23:05 White Blood Count 15.8 x10^3/uL (4.0-11.0) Red Blood Count 4.38 x10^6/uL (4.30-5.70) Hemoglobin 14.4 g/dL (13.0-17.5) Hematocrit 42.2 % (39.0-53.0) Mean Corpuscular Volume 96 fL (79-100) Mean Corpuscular Hemoglobin 33 pg (25-35) Mean Corpuscular Hemoglobin Concent 34 g/dL (31-37) Red Cell Distribution Width 12.7 % (11.5-14.5) Platelet Count 233 x10^3/uL (140-400) Neutrophils (%) (Auto) 87 % (31-73) Lymphocytes (%) (Auto) 4 % (24-48) Monocytes (%) (Auto) 8 % (0-9) Eosinophils (%) (Auto) 1 % (0-3) Basophils (%) (Auto) 1 % (0-3) Neutrophils # (Auto) 13.7 x10^3/uL (1.8-7.7) Lymphocytes # (Auto) 0.6 x10^3/uL (1.0-4.8) Monocytes # (Auto) 1.3 x10^3/uL (0.0-1.1) Eosinophils # (Auto) 0.1 x10^3/uL (0.0-0.7) Basophils # (Auto) 0.1 x10^3/uL (0.0-0.2) Segmented Neutrophils % 61 % (35-66) Band Neutrophils % 31 % (0-9) Lymphocytes % 3 % (24-48) Monocytes % 3 % (0-10) Metamyelocytes % 2 % (0-0) Dohle Bodies Present Platelet Estimate Adequate (ADEQUATE) Sodium Level 130 mmol/L (136-145) Potassium Level 4.4 mmol/L (3.5-5.1) Chloride Level 95 mmol/L (98-107) Carbon Dioxide Level 23 mmol/L (21-32) Anion Gap 12 (6-14) Blood Urea Nitrogen 8 mg/dL (8-26) Creatinine 0.8 mg/dL (0.7-1.3) Estimated GFR (Cockcroft-Gault) 100.0 Glucose Level 113 mg/dL (70-99) Calcium Level 9.0 mg/dL (8.5-10.1) Magnesium Level 2.0 mg/dL (1.8-2.4) Procalcitonin 2.85 ng/mL (0.00-0.10) Lactic Acid Level 1.0 mmol/L (0.4-2.0) Laboratory Tests Test 03/15/21 23:05 Lactic Acid Level 1.0 mmol/L (0.4-2.0) Impression . IMPRESSION: 1. Abnormal CT chest revealing an opacity in the right middle lobe, suspect pneumonia with pleurisy. 2. Tobacco dependent. 3. Alcoholism. 4. Pleurisy. Plan . DISCUSSION: Suspect opacity is a pneumonia. With that being said, the patient requires a repeat CT chest in 2 months, to make certain that the opacity has cleared, if it is not resolved, he will need a fine needle aspiration. I stressed the importance of followup in 2 months. I gave him my business card. For now, I recommend addition of antibiotics. Continue treating the pain. Monitor for alcohol withdrawal. LOIDA SAHU MD Mar 16, 2021 09:16
[2021-03-16 10:29] LABS: BASO % 0 % (0-3); EOS # 0.1 x10^3/uL (0.0-0.7); EOS % 1 % (0-3); LYMPH # 0.6 x10^3/uL (1.0-4.8); LYMPH % 4 % (24-48); MEAN CORPUSCULAR HEMOGLOBIN 33 pg (25-35); MEAN CORPUSCULAR HGB CONC 34 g/dL (31-37); MEAN CORPUSCULAR VOLUME 95 fL (79-100); MONO # 1.2 x10^3/uL (0.0-1.1); MONO % 9 % (0-9); NEUT # 11.7 x10^3/uL (1.8-7.7); NEUT % 86 % (31-73); PLATELET COUNT 246 x10^3/uL (140-400); RED BLOOD COUNT 4.01 x10^6/uL (4.30-5.70); RED CELL DISTRIBUTION WIDTH 12.9 % (11.5-14.5); WHITE BLOOD COUNT 13.7 x10^3/uL (4.0-11.0)
[2021-03-16 10:38] LABS: CALCIUM 8.9 mg/dL (8.5-10.1); CREATININE 0.6 mg/dL (0.7-1.3); GFR 139.4; MAGNESIUM 2.1 mg/dL (1.8-2.4); POTASSIUM 3.6 mmol/L (3.5-5.1)
--- NOTE | 2021-03-16 10:39 | RAD ---
EXAM: Chest, single view. HISTORY: Pneumonia. COMPARISON: 03/13/2021 FINDINGS: A frontal view of the chest is obtained. There is new right paramediastinal masslike opacit y which is not attributable to slight oblique patient positioning compared to the prior exam. There h as been interval increase in partially consolidated right lower lobe pneumonia and a suspected small pleural effusion. There is an incidental azygos lobe. The left lung is clear. There is no pneumothora x. IMPRESSION: 1. New right paranasal masslike opacity, not attributable to oblique patient positioning. CT is recom mended for characterization. 2. Increasing partially consolidated right lower lobe pneumonia. Electronically signed by: Alba Murphy MD (03/16/2021 10:37 AM) [id number]
[2021-03-16 11:47] VITALS: BP 150/99
[2021-03-16] MEDS: PIPERACILLIN/TAZOBACTAM 3.375 GM in IV NORMAL SALINE 50ML 50 ML IV SCH ×2 (11:48→17:48)
--- NOTE | 2021-03-16 12:16 | PDOC ---
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 He could not get comfortable today he states that on Sunday pain was okay, but he arrived to ER in distress, HR 130, RR 40, BP 200, prior BP 2 days ago with 130 range. pain is much worse, right middle of chest, small spot of pain 9/10, and right hip pain, to palpation, . Patient states that he did did have a sixpack of beer today, normally drinks 12, gets tremor is he does not drink in a day. . Patient denies trauma or fever or chills. CT scan done before I was called showed 2cm middle lobe mass 03/14/2021 No acute events overnight. Patient seen and examined bedside. Resting comfortably. Low CIWA scores. No concerns from nursing at this time patient's chart, labs, images were reviewed and discussed with RN 03/15/2021 No acute events overnight. T-max of 100.3 this morning. Patient also had a desaturation episode down to 89% requiring 2 L of O2. No acute dyspneic episodes. We will continue with IV antibiotics. Evaluated by pulmonology and recommended for patient to have repeat CT scan in 2 months. Will anticipate discharge in the next 24-48 hours after one more day IV antibiotics no fevers for the next 24 hours. Vitals/I&O Vitals/I&O: Vital Signs Date Time Temp Pulse Resp B/P (MAP) Pulse Ox O2 Delivery O2 Flow Rate FiO2 03/16/21 11:47 97.8 98 16 150/99 (116) 99 Room Air 97.8 03/16/21 08:50 2.0 I & O 1103/15/21 03/16/21 15:00 23:00 07:00 Intake Total 400 ml Output Total 200 ml Balance -200 ml 400 ml Physical Exam General: Alert, Oriented X3, Cooperative, moderate distress (pain, resp rate, anxious ) Abdomen: Normal bowel sounds, Soft (tender) Extremities: No cyanosis Skin: No rashes, No breakdown Labs Labs: Laboratory Tests Test 03/15/21 23:05 03/16/21 09:35 Lactic Acid Level 1.0 mmol/L (0.4-2.0) White Blood Count 13.7 x10^3/uL (4.0-11.0) Red Blood Count 4.01 x10^6/uL (4.30-5.70) Hemoglobin 13.0 g/dL (13.0-17.5) Hematocrit 38.0 % (39.0-53.0) Mean Corpuscular Volume 95 fL (79-100) Mean Corpuscular Hemoglobin 33 pg (25-35) Mean Corpuscular Hemoglobin Concent 34 g/dL (31-37) Red Cell Distribution Width 12.9 % (11.5-14.5) Platelet Count 246 x10^3/uL (140-400) Neutrophils (%) (Auto) 86 % (31-73) Lymphocytes (%) (Auto) 4 % (24-48) Monocytes (%) (Auto) 9 % (0-9) Eosinophils (%) (Auto) 1 % (0-3) Basophils (%) (Auto) 0 % (0-3) Neutrophils # (Auto) 11.7 x10^3/uL (1.8-7.7) Lymphocytes # (Auto) 0.6 x10^3/uL (1.0-4.8) Monocytes # (Auto) 1.2 x10^3/uL (0.0-1.1) Eosinophils # (Auto) 0.1 x10^3/uL (0.0-0.7) Basophils # (Auto) 0.0 x10^3/uL (0.0-0.2) Sodium Level 128 mmol/L (136-145) Potassium Level 3.6 mmol/L (3.5-5.1) Chloride Level 96 mmol/L (98-107) Carbon Dioxide Level 26 mmol/L (21-32) Anion Gap 6 (6-14) Blood Urea Nitrogen 9 mg/dL (8-26) Creatinine 0.6 mg/dL (0.7-1.3) Estimated GFR (Cockcroft-Gault) 139.4 Glucose Level 109 mg/dL (70-99) Calcium Level 8.9 mg/dL (8.5-10.1) Magnesium Level 2.1 mg/dL (1.8-2.4) Assessment and Plan Assessmemt and Plan Problems Medical Problems: (1) Chest wall pain Status: Acute (2) Right pulmonary lesion Status: Acute Comment Review of Relevant I have reviewed the following items ivett (where applicable) has been applied. Medications: Current Medications Medications (Trade) Dose Ordered Sig/Stephanie Route PRN Reason Start Time Stop Time Status Last Admin Dose Admin Lactobacillus Rhamnosus (Culturelle) 1 cap BID PO 03/15/21 21:00 03/16/21 08:15 Albuterol Sulfate (Ventolin Neb Soln) 2.5 mg PRN Q6HRS PRN NEB COUGH 03/15/21 15:15 03/15/21 22:13 Piperacillin Sod/ Tazobactam Sod 3.375 gm/Sodium Chloride 50 ml @ 100 mls/hr Q6HRS IV 03/16/21 12:00 03/16/21 11:48 Justifications for Admission Other Justification CHERYL SNELL MD Mar 16, 2021 12:16
[2021-03-16] MEDS ORDERED: ONDANSETRON PF 4 MG/2 ML VIAL. IVP PRN (14:45)
[2021-03-16 15:00] VITALS: BP 179/99
[2021-03-16 19:00] VITALS: BP 159/91
[2021-03-16] MEDS ORDERED: KETOROLAC 15 MG/ML VIAL. IVP PRN (22:00)
[2021-03-16] MEDS ORDERED: PANTOPRAZOLE 40 MG TABLET.DR. PO SCH (22:00)
[2021-03-16 23:00] VITALS: BP 152/97
[2021-03-17] MEDS: PIPERACILLIN/TAZOBACTAM 3.375 GM in IV NORMAL SALINE 50ML 50 ML IV SCH ×3 (00:01→11:34)
[2021-03-17 03:00] VITALS: BP 161/105
[2021-03-17 07:15] VITALS: BP 164/94
--- NOTE | 2021-03-17 08:17 | PDOC ---
PULMONARY PROGRESS NOTES DATE: 03/17/21 TIME: 08:17 Subjective Patient feels better, not more short of air. No hemoptysis Vitals Vital Signs Date Time Temp Pulse Resp B/P (MAP) Pulse Ox O2 Delivery O2 Flow Rate FiO2 03/17/21 07:15 98.8 107 164/94 (117) 96 Nasal Cannula 2.0 98.8 03/16/21 23:00 18 ROS: No Nausea, No Chest Pain, No Abdominal Pain, No Increase Cough General: Alert Lungs: Clear Cardiovascular: S1, S2 Abdomen: Soft Neuro Exam: Alert Extremities: No Edema Skin: Warm Labs Laboratory Tests Test 03/15/21 09:15 03/15/21 23:05 03/16/21 09:35 03/16/21 10:00 White Blood Count 15.8 x10^3/uL (4.0-11.0) 13.7 x10^3/uL (4.0-11.0) Red Blood Count 4.38 x10^6/uL (4.30-5.70) 4.01 x10^6/uL (4.30-5.70) Hemoglobin 14.4 g/dL (13.0-17.5) 13.0 g/dL (13.0-17.5) Hematocrit 42.2 % (39.0-53.0) 38.0 % (39.0-53.0) Mean Corpuscular Volume 96 fL (79-100) 95 fL (79-100) Mean Corpuscular Hemoglobin 33 pg (25-35) 33 pg (25-35) Mean Corpuscular Hemoglobin Concent 34 g/dL (31-37) 34 g/dL (31-37) Red Cell Distribution Width 12.7 % (11.5-14.5) 12.9 % (11.5-14.5) Platelet Count 233 x10^3/uL (140-400) 246 x10^3/uL (140-400) Neutrophils (%) (Auto) 87 % (31-73) 86 % (31-73) Lymphocytes (%) (Auto) 4 % (24-48) 4 % (24-48) Monocytes (%) (Auto) 8 % (0-9) 9 % (0-9) Eosinophils (%) (Auto) 1 % (0-3) 1 % (0-3) Basophils (%) (Auto) 1 % (0-3) 0 % (0-3) Neutrophils # (Auto) 13.7 x10^3/uL (1.8-7.7) 11.7 x10^3/uL (1.8-7.7) Lymphocytes # (Auto) 0.6 x10^3/uL (1.0-4.8) 0.6 x10^3/uL (1.0-4.8) Monocytes # (Auto) 1.3 x10^3/uL (0.0-1.1) 1.2 x10^3/uL (0.0-1.1) Eosinophils # (Auto) 0.1 x10^3/uL (0.0-0.7) 0.1 x10^3/uL (0.0-0.7) Basophils # (Auto) 0.1 x10^3/uL (0.0-0.2) 0.0 x10^3/uL (0.0-0.2) Segmented Neutrophils % 61 % (35-66) Band Neutrophils % 31 % (0-9) Lymphocytes % 3 % (24-48) Monocytes % 3 % (0-10) Metamyelocytes % 2 % (0-0) Dohle Bodies Present Platelet Estimate Adequate (ADEQUATE) Sodium Level 130 mmol/L (136-145) 128 mmol/L (136-145) Potassium Level 4.4 mmol/L (3.5-5.1) 3.6 mmol/L (3.5-5.1) Chloride Level 95 mmol/L (98-107) 96 mmol/L (98-107) Carbon Dioxide Level 23 mmol/L (21-32) 26 mmol/L (21-32) Anion Gap 12 (6-14) 6 (6-14) Blood Urea Nitrogen 8 mg/dL (8-26) 9 mg/dL (8-26) Creatinine 0.8 mg/dL (0.7-1.3) 0.6 mg/dL (0.7-1.3) Estimated GFR (Cockcroft-Gault) 100.0 139.4 Glucose Level 113 mg/dL (70-99) 109 mg/dL (70-99) Calcium Level 9.0 mg/dL (8.5-10.1) 8.9 mg/dL (8.5-10.1) Magnesium Level 2.0 mg/dL (1.8-2.4) 2.1 mg/dL (1.8-2.4) Procalcitonin 2.85 ng/mL (0.00-0.10) Lactic Acid Level 1.0 mmol/L (0.4-2.0) Nasal Screen MRSA (PCR) Negative (NEGATIVE) Laboratory Tests Test 03/16/21 09:35 03/16/21 10:00 White Blood Count 13.7 x10^3/uL (4.0-11.0) Red Blood Count 4.01 x10^6/uL (4.30-5.70) Hemoglobin 13.0 g/dL (13.0-17.5) Hematocrit 38.0 % (39.0-53.0) Mean Corpuscular Volume 95 fL (79-100) Mean Corpuscular Hemoglobin 33 pg (25-35) Mean Corpuscular Hemoglobin Concent 34 g/dL (31-37) Red Cell Distribution Width 12.9 % (11.5-14.5) Platelet Count 246 x10^3/uL (140-400) Neutrophils (%) (Auto) 86 % (31-73) Lymphocytes (%) (Auto) 4 % (24-48) Monocytes (%) (Auto) 9 % (0-9) Eosinophils (%) (Auto) 1 % (0-3) Basophils (%) (Auto) 0 % (0-3) Neutrophils # (Auto) 11.7 x10^3/uL (1.8-7.7) Lymphocytes # (Auto) 0.6 x10^3/uL (1.0-4.8) Monocytes # (Auto) 1.2 x10^3/uL (0.0-1.1) Eosinophils # (Auto) 0.1 x10^3/uL (0.0-0.7) Basophils # (Auto) 0.0 x10^3/uL (0.0-0.2) Sodium Level 128 mmol/L (136-145) Potassium Level 3.6 mmol/L (3.5-5.1) Chloride Level 96 mmol/L (98-107) Carbon Dioxide Level 26 mmol/L (21-32) Anion Gap 6 (6-14) Blood Urea Nitrogen 9 mg/dL (8-26) Creatinine 0.6 mg/dL (0.7-1.3) Estimated GFR (Cockcroft-Gault) 139.4 Glucose Level 109 mg/dL (70-99) Calcium Level 8.9 mg/dL (8.5-10.1) Magnesium Level 2.1 mg/dL (1.8-2.4) Nasal Screen MRSA (PCR) Negative (NEGATIVE) Impression . IMPRESSION: 1. Abnormal CT chest revealing an opacity in the right middle lobe, suspect pneumonia with pleurisy. 2. Tobacco dependent. 3. Alcoholism. 4. Pleurisy. Plan . Discussed with Dr. Merrill, discharge today, follow-up with me in 2 months Discharge on Augmentin LOIDA SAHU MD Mar 17, 2021 08:17
--- NOTE | 2021-03-17 09:56 | NUR ---
SW following. Discussed with RN, pt from home, 2L (RN attempting to titrate today), regular diet, COVID-19 negative. Possible discharge home today. Med Assist following for self pay status. SW will continue to follow.
[2021-03-17] MEDS: LACTOBACILLUS RHAMNOSUS GG 1 CAPSULE. PO SCH (10:06)
[2021-03-17] MEDS: THIAMINE 100 MG TABLET. PO SCH (10:06)
[2021-03-17] MEDS: FOLIC ACID 1 MG TABLET. PO SCH (10:06)
[2021-03-17] MEDS: NICOTINE 21MG PATCH. TD SCH (10:07)
[2021-03-17 10:10] LABS: CALCIUM 8.6 mg/dL (8.5-10.1); CREATININE 0.8 mg/dL (0.7-1.3); MAGNESIUM 2.2 mg/dL (1.8-2.4); POTASSIUM 3.8 mmol/L (3.5-5.1)
--- NOTE | 2021-03-17 10:11 | NUR ---
only 1mg of scheduled Ativan was given at 1010. scanned wrong one when entering in the computer.
[2021-03-17 10:13] LABS: BASO % 0 % (0-3); EOS # 0.2 x10^3/uL (0.0-0.7); EOS % 1 % (0-3); HEMATOCRIT 40.9 % (39.0-53.0); HEMOGLOBIN 13.5 g/dL (13.0-17.5); LYMPH # 0.6 x10^3/uL (1.0-4.8); LYMPH % 5 % (24-48); MEAN CORPUSCULAR HEMOGLOBIN 32 pg (25-35); MEAN CORPUSCULAR HGB CONC 33 g/dL (31-37); MEAN CORPUSCULAR VOLUME 96 fL (79-100); MONO # 1.3 x10^3/uL (0.0-1.1); MONO % 11 % (0-9); NEUT # 10.2 x10^3/uL (1.8-7.7); NEUT % 83 % (31-73); PLATELET COUNT 288 x10^3/uL (140-400); RED BLOOD COUNT 4.26 x10^6/uL (4.30-5.70); RED CELL DISTRIBUTION WIDTH 13.2 % (11.5-14.5); WHITE BLOOD COUNT 12.3 x10^3/uL (4.0-11.0)
[2021-03-17] MEDS ORDERED: AMOX1TAB58 PO (10:59)
[2021-03-17] MEDS ORDERED: PANT40TA77 PO (10:59)
[2021-03-17] MEDS ORDERED: THIA100T22 PO (10:59)
[2021-03-17 11:03] VITALS: BP 174/95
--- NOTE | 2021-03-17 11:08 | DISCH ---
DISCHARGE INSTRUCTIONS Condition on Discharge Condition on Discharge: Stable Activity After Discharge Activity Instructions for Disc: Activity as tolerated Lifting Instructions after Dis: Do not lift >10 pounds Exercise Instruction after Dis: Walk 15 min, 3 x per day Driving Instructions after Dis: Do not drive today Diet after Discharge Diet after Discharge: Cardiac Follow-Up Follow up with: PCP within 2 weeks of discharge Follow Up With: Pulmonology within 2 months to repeat a CT chest CHERYL SNELL MD Mar 17, 2021 11:07
--- NOTE | 2021-03-17 13:30 | NUR ---
pt discharged. left by wheelchair with family member in personal vehicle
--- NOTE | 2021-03-20 11:28 | PDOC3 ---
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 Merrill, discharge today, follow-up with me in 2 months Discharge on Augmentin Hospital Course: Hospital Course: 55-year-old male return to the ER since 2 days ago with ongoing severe chest pain. He could not get comfortable today he states that on Sunday pain was okay, but he arrived to ER in distress, HR 130, RR 40, BP 200, prior BP 2 days ago with 130 range. pain is much worse, right middle of chest, small spot of pain 9/10, and right hip pain, to palpation, . Patient states that he did did have a sixpack of beer today, normally drinks 12, gets tremor is he does not drink in a day. . Patient denies trauma or fever or chills. CT scan done before I was called showed 2cm middle lobe mass 03/14/2021 No acute events overnight. Patient seen and examined bedside. Resting com fortably. Low CIWA scores. No concerns from nursing at this time patient's chart, labs, images were reviewed and discussed with RN 03/15/2021 No acute events overnight. T-max of 100.3 this morning. Patient also had a desaturation episode down to 89% requiring 2 L of O2. No acute dyspneic episodes. We will continue with IV antibiotics. Evaluated by pulmonology and recommended for patient to have repeat CT scan in 2 months. Will anticipate discharge in the next 24-48 hours after one more day IV antibiotics no fevers for the next 24 hours. By time of discharge patient was clinically stable and ready to go home. Patient will be discharged with p.o. antibiotics and follow-up closely with pulmonary. Repeat CT chest in 2 months. Rest of hospital course was uneventful. Disposition: Disposition/Orders: D/C to Home Activity: Activity: Resume previous activity Diet: Diet: Cardiac Medications: Home Meds Active Scripts Amoxicillin/Potassium Clav (AUGMENTIN 500-125 TABLET) 1 Each Tablet, 1 TAB PO BID for pneumonia for 7 Days, #14 TAB 0 Refills Prov:CHERYL MERRILL MD 03/17/21 Pantoprazole Sodium (PANTOPRAZOLE SODIUM ) 40 Mg Tablet.dr, 40 MG PO DAILYWSUP for reflux for 30 Days, #30 TAB.SR Prov:CHERYL MERRILL MD 03/17/21 Thiamine Mononitrate (VITAMIN B-1) 100 Mg Tablet, 100 MG PO DAILY for supplement for 30 Days, #30 TAB 2 Refills Prov:CHERYL MERRILL MD 03/17/21 Scheduled Amoxicillin/Potassium Clav (Augmentin 500-125 Tablet), 1 TAB PO BID Pantoprazole Sodium (Pantoprazole Sodium ), 40 MG PO DAILYWSUP Thiamine Mononitrate (Vitamin B-1), 100 MG PO DAILY Total Time: Total Time: Total time spent was 33 minutes in preparing scripts, discharge planning with SWI and RN and preparing this discharge summary Patient seen and examined on day of discharge. No acute abnormal findings. Justicifation of Admission Dx: Justifications for Admission: Justification of Admission Dx: Yes Respiratory Failure: Severe Resp Distress CHERYL MERRILL MD Mar 20, 2021 11:28
== END 2021-03-17 13:45 | disposition home or self-care (01) | DRG 871 ==
LOC: ER 15:41 → 4 NORTH 18:29
PROVIDERS: ADMIT Internal Medicine; ATTEND Internal Medicine
DX: A41.9 Sepsis, unspecified organism (principal); J96.91 Respiratory failure, unspecified with hypoxia; J15.6 Pneumonia due to other Gram-negative bacteria; F10.239 Alcohol dependence with withdrawal, unspecified; J44.0 Chronic obstructive pulmonary disease with (acute) lower respiratory infection; C34.2 Malignant neoplasm of middle lobe, bronchus or lung; F17.210 Nicotine dependence, cigarettes, uncomplicated; F41.9 Anxiety disorder, unspecified; I16.0 Hypertensive urgency; Z20.822 Contact with and (suspected) exposure to COVID-19
CPT/HCPCS: 36415; 71045; 71275; 74177; 80048; 80053; 83605; 83690; 83735; 84145; 84484; 85007; 85025; 87040; 87426; 87641; 93005; 94640; 94760; 96361; 96374; 96375; 96376; G0480; J0696; J1885; J2060; J2270; J2405; J2543; J3411; J3490; J7030; Q9967; U0003; U0005; 99285-25; G0378; J7613